=== PATIENT | female | born 1955 | race Caucasian/White ===

== ENCOUNTER 2020-11-14 18:37 | Emergency (ER) | payer OTHER, SELFPAY ==
--- NOTE | ~2020-11-14 | CT_ITS ---
EXAMINATION: CT ABDOMEN AND PELVIS WITHOUT CONTRAST CLINICAL INFORMATION: Left flank pain. Renal stones. COMPARISON: CT abdomen/pelvis dated 10/06/2016. TECHNIQUE: Multidetector volumetric imaging was performed from the superior aspect of the liver through the pubic symphysis. Sagittal and coronal reformatted images were obtained on the technologist's workstation. This CT examination was performed using dose optimization techniques as appropriate, variously including the following: *Automated exposure control. *Adjustment of mA and/or kV according to patient size (this includes techniques or standardized protocols for targeted exams where dose is matched to indication/reason for exam; i.e. extremities or head). *Use of iterative reconstruction technique. DLP: 498 mGy-cm FINDINGS: LUNG BASES: The visualized lung bases are unremarkable. LIVER, GALLBLADDER, AND BILIARY TREE: The liver is normal in size, shape, and attenuation. Small, probable cyst anteriorly within the right hepatic lobe measuring 0.9 cm. No additional focal hepatic lesion or biliary ductal dilatation is present. The gallbladder is unremarkable with no evidence of radiopaque gallstones, gallbladder wall thickening, or obvious pericholecystic inflammatory changes. PANCREAS: Unremarkable. SPLEEN: Unremarkable. ADRENAL GLANDS: Unremarkable. KIDNEYS AND URETERS: The kidneys are normal in size, shape, and attenuation. Right midpole 0.2 cm renal stone, too small to characterize by Hounsfield units. This is located approximately 9.5 cm from the posterior axillary line. This is not clearly seen on the prior CT. No additional right-sided renal or ureteral stone. No right-sided hydronephrosis or hydroureter. Left ureterovesicular junction stone measuring 0.3 cm. Mild proximal hydroureteronephrosis with mild periureteral and perinephric stranding. Additional left midpole renal stone measuring 0.2 cm and located approximately 8.2 cm from the posterior axillary line. BLADDER: Nondistended and unremarkable. GASTROINTESTINAL TRACT: Small, sliding hiatal hernia. Sigmoid diverticulosis without evidence of acute diverticulitis. No bowel wall thickening or associated inflammatory change. No small or large bowel obstruction. Unremarkable appendix. PERITONEAL CAVITY: No intra-abdominal free air or free fluid. No intra-abdominal mass or organized fluid collection/abscess formation. ABDOMINAL WALL: No significant hernia is appreciated. LYMPH NODES: Normal. VASCULAR: Unremarkable. PELVIC VISCERA: The uterus and adnexa are unremarkable. OSSEOUS STRUCTURES: No concerning lytic or blastic osseous lesion. CT/CT abdomen pelvis wo con IMPRESSION: 1. Left ureterovesicular junction stone measuring 0.3 cm with mild left-sided hydroureteronephrosis. Left periureteral and perinephric stranding. 2. Additional 0.2 cm bilateral renal stones. No right-sided hydronephrosis or hydroureter. Unremarkable urinary bladder. 3. Small, sliding hiatal hernia. Diverticulosis without evidence of acute diverticulitis. No small or large bowel obstruction. Unremarkable appendix.
[2020-11-14 18:40] VITALS: BP 168/85; PULSE 81; RESP 16; TEMP 36.6; O2SAT 95; BMI 25.7
--- NOTE | 2020-11-14 18:58 | ED_ITS ---
HPI - General Adult General Chief complaint: Abdominal Pain <CHECO Recinos Last Filed: 11/14/20 20:56> Stated complaint: Flank pain <CHECO Recinos Last Filed: 11/14/20 20:56> Time Seen by Provider: 11/14/20 18:58 <CHECO Recinos Last Filed: 11/14/20 20:56> Source: patient <CHECO Recinos Last Filed: 11/14/20 20:56> Mode of arrival: ambulatory <CHECO Recinos Last Filed: 11/14/20 20:56> Limitations: no limitations <CHECO Recinos Last Filed: 11/14/20 20:56> History of Present Illness HPI narrative: 65-year-old female with a history of kidney stones presents with left flank pain that started at 11:00 a.m. this morning. Patient has had nausea and chills from the pain. The pain is a 9/10 and is constant. She took 600 mg of ibuprofen 1 hour ago which helped with the pain. No dysuria, although she does have urinary frequency. No hematuria. No fevers. No abdominal radiation. She has been drinking a lot of water, and following the protocol her urologist as planned for where she takes ibuprofen, Tylenol, and Soma. This is not resolving her symptoms. Her last stone was 2 years ago. Reports she has had kidney stones at least [address] Merrill, urologist, [facility]. In the spring she image her kidneys and said she had nephrolithiasis. <CHECO Moran Last Filed: 11/14/20 20:56> MD complaint: left flank pain <CHECO Recinos Last Filed: 11/14/20 20:56> Onset (ago): hour(s) (8) <CHECO Recinos Last Filed: 11/14/20 20:56> Radiation: non-radiation <CHECO Recinos Last Filed: 11/14/20 20:56> Severity: severe <CHECO Recinos Last Filed: 11/14/20 20:56> Severity scale (1-10): 9 <CHECO Recinos Last Filed: 11/14/20 20:56> Quality: stabbing <CHECO Recinos Last Filed: 11/14/20 20:56> Pain Consistency: constant <CHECO Recinos Last Filed: 11/14/20 20:56> Relieving factors: medication <CHECO Recinos Last Filed: 11/14/20 20:56> Exacerbating factors: movement <CHECO Recinos Last Filed: 11/14/20 20:56> Associated symptoms: denies other symptoms <CHECO Recinos Last Filed: 11/14/20 20:56> Treatments prior to arrival: NSAID <CHECO Recinos Last Filed: 11/14/20 20:56> Related Data Home medications: Previous Rx's Medication Instructions Recorded ketorolac 10 mg tablet 10 mg PO TID PRN 5 Days #10 tab 11/14/20 ondansetron HCl 4 mg tablet 4 mg PO Q6H PRN #10 tab 11/14/20 (Zofran) prednisone 20 mg tablet 20 mg PO DAILY #4 tab 11/14/20 <CHECO Recinos Last Filed: 11/14/20 20:56> Allergies/adverse reactions: Allergies Allergy/AdvReac Type Severity Reaction Status Date / Time No Known Allergies Allergy Verified 11/14/20 18:46 [No Known Allergies*] <CHECO Recinos Last Filed: 11/14/20 20:56> Review of Systems Constitutional: Constitutional: Denies body ache(s), Reports chills, Denies fatigue, Denies fever(s), Denies headache(s), Denies malaise and Denies weakness <CHECO Recinos Last Filed: 11/14/20 20:56> Eyes: Eyes: Denies change in vision and Denies diplopia <CHECO Recinos Last Filed: 11/14/20 20:56> ENT: Denies vertigo, Denies dizziness, Denies otalgia, Denies headache(s), Denies post nasal drip, Denies sinus pain and Denies sore throat <CHECO Recinos Last Filed: 11/14/20 20:56> Cardiovascular: Cardiovascular: Denies chest pain, Denies syncope, Denies palpitations and Denies dyspnea <CHECO Recinos Last Filed: 11/14/20 20:56> Respiratory: Respiratory: Denies chest congestion, Denies cough and Denies dyspnea <CHECO Recinos Last Filed: 11/14/20 20:56> Gastrointestinal: Gastrointestinal: Denies abdominal pain, Denies hematochezia, Denies constipation, Denies diarrhea, Reports nausea and Denies vomiting <CHECO Recinos Last Filed: 11/14/20 20:56> Genitourinary: Genitourinary: Denies dysuria, Denies pelvic pain, Reports flank pain, Denies urinary incontinence, Denies urinary hesitancy, Reports urinary urgency and Denies vaginal discharge <CHECO Recinos Last Filed: 11/14/20 20:56> Musculoskeletal: Musculoskeletal: Reports back pain <CHECO Recinos Last Filed: 11/14/20 20:56> Integumentary/Breasts: Skin/Breast: Denies erythema and Denies rash <CHECO Recinos Last Filed: 11/14/20 20:56> Neurologic: Denies confusion, Denies vertigo, Denies dizziness, Denies syncope, Denies headache(s) and Denies weakness <CHECO Recinos Last Filed: 11/14/20 20:56> Psychiatric: Psychiatric: Denies anxiety, Denies confusion and Denies depression <CHECO Recinos Last Filed: 11/14/20 20:56> Endocrine: Endocrine: Denies fatigue and Denies palpitations <CHECO Recinos Last Filed: 11/14/20 20:56> [facility] Past Medical History Medical History: Medical History (Updated 11/14/20 @ 21:56 by Rianna Taylor MD) Renal calculi <CHECO Recinos Last Filed: 11/14/20 20:56> Social History Social History: Social History Advance Directives: No Advance Directives Information Provided: No <CHECO Recinos Last Filed: 11/14/20 20:56> Physical Exam Vital Signs: Vital Signs: Last Vital Signs Temp 97.9 F 11/14/20 18:40 Pulse 81 11/14/20 18:40 Resp 16 11/14/20 20:43 BP 168/85 H 11/14/20 18:40 Pulse Ox 95 11/14/20 18:40 Body Mass Index 25.7 <CHECO Recinos - Last Filed: 11/14/20 20:56> Vital Signs: Last Vital Signs Temp 97.9 F 11/14/20 18:40 Pulse 81 11/14/20 18:40 Resp 16 11/14/20 20:43 BP 168/85 H 11/14/20 18:40 Pulse Ox 95 11/14/20 18:40 Body Mass Index 25.7 <Rianna Taylor MD - Last Filed: 11/14/20 21:59> Const: General: No confusion <CHECO Recinos - Last Filed: 11/14/20 20:56> Nutritional Appearance: well nourished <CHECO Recinos - Last Filed: 11/14/20 20:56> Orientation/consciousness: No confusion <CHECO Recinos - Last Filed: 11/14/20 20:56> Limitations: no limitations <CHECO Recinos - Last Filed: 11/14/20 20:56> Eyes: Conjunctivae: conjunctivae normal <CHECO Recinos - Last Filed: 11/14/20 20:56> Pupils: Equal, round and reactive pupils present <CHECO Recinos - Last Filed: 11/14/20 20:56> EOM: EOMs intact bilaterally <CHECO Recinos - Last Filed: 11/14/20 20:56> Neck: Neck: Yes full ROM, Yes no lymphadenopathy and Yes supple <CHECO Recinos - Last Filed: 11/14/20 20:56> Resp: Effort & Inspection: normal respiratory effort and able to speak in complete sentences <CHECO Recinos Last Filed: 11/14/20 20:56> Auscultation: clear to auscultation bilaterally, no crackles, no rales, no rhonchi and no wheezes <CHECO Recinos Last Filed: 11/14/20 20:56> Cardio: Rate: regular rate <CHECO Recinos Last Filed: 11/14/20 20:56> Rhythm: regular rhythm <CHECO Recinos - Last Filed: 11/14/20 20:56> Heart sounds: S1 normal heart sound present and S2 normal heart sound present <Neema Mcdonald [facility] Last Filed: 11/14/20 20:56> GI: Inspection: Yes normal to inspection <Neema Mcdonald [facility] Last Filed: 11/14/20 20:56> Palpation (GI): Soft to palpation, nontender, no guarding and not rigid <Neema Mcdonald [facility] Last Filed: 11/14/20 20:56> Percussion: Yes normal to percussion <Neema Mcdonald [facility] Last Filed: 11/14/20 20:56> Auscultation: normal bowel sounds <Neema Mcdonald [facility] Last Filed: 11/14/20 20:56> : General: Yes no CVA tenderness <Neema Mcdonald [facility] Last Filed: 11/14/20 20:56> Back/Spine/Pelvis: Back: no CVA tenderness <Neema Mcdonald [facility] Last Filed: 11/14/20 20:56> Skin: General skin exam: no rashes or lesions noted <Neema Mcdonald [facility] Last Filed: 11/14/20 20:56> Neuro: General: No confusion <Neema Mcdonald [facility] Last Filed: 11/14/20 20:56> Cranial nerves: Yes Equal, round and reactive pupils present <Neema Mcdonald [facility] Last Filed: 11/14/20 20:56> Extrem: General: Yes normal to inspection and Yes full ROM <Neema Mcdonald [facility] Last Filed: 11/14/20 20:56> Psych: Appearance: grossly normal <Neema Mcdonald [facility] Last Filed: 11/14/20 20:56> Affect: normal affect <Neema Mcdonald [facility] Last Filed: 11/14/20 20:56> Attitude: cooperative <Neema Mcdonald [facility] Last Filed: 11/14/20 20:56> Thought process: Normal thought process present <Neema Mcdonald [facility] Last Filed: 11/14/20 20:56> Course Course Course Narrative: 65-year-old female with a past medical history of kidney stones presents for 8 hours of constant left flank pain that feels like ?a kidney stone is stuck?. On exam, patient has stable vitals and is well appearing, patient has no CVA tenderness. Will get urine, labs, CT abdomen pelvis. Gave ketorolac. Gave fluids. Labs are unremarkable, patient has hematuria Over the course of checking with the patient, patient is stating that she feels like the pain is moving more into her pelvis. Signed patient out to Dr. Taylor, awaiting CT results. <CHECO Recinos - Last Filed: 11/14/20 20:56> 65-year-old female with a past medical history of kidney stones presents for 8 hours of constant left flank pain that feels like ?a kidney stone is stuck?. On exam, patient has stable vitals and is well appearing, patient has no CVA tenderness. Will get urine, labs, CT abdomen pelvis. Gave ketorolac. Gave fluids. Labs are unremarkable, patient has hematuria Over the course of checking with the patient, patient is stating that she feels like the pain is moving more into her pelvis. Signed patient out to Dr. Taylor, awaiting CT results. I discussed the CT scan with the patient, patient does have left ureterovesicular junction stone measuring 0.3 cm patient states she has been off Flomax at home. Does not require a prescription. Patient states that she has a urologist that she usually goes to. <Rianna Taylor MD - Last Filed: 11/14/20 21:59> Medical Decision Making Lab Data Result diagrams: : 11/14/20 19:30 11/14/20 20:02 <CHECO Recinos - Last Filed: 11/14/20 20:56> Labs: Lab Results 11/14/20 11/14/20 11/14/20 Range/Units 19:30 19:30 20:02 WBC 9.0 (4.8-10.8) X10*3/uL RBC 4.69 (4.20-5.50) X10*6/uL Hgb 14.1 (12.0-16.0) g/dl Hct 42.9 (37-47) % MCV 91.5 (80-98) fL MCH 30.1 (27.0-33.0) pg MCHC 32.9 (31.0-35.0) g/dl RDW 12.0 (11.0-16.0) % Plt Count 285 (160-400) X10*3/uL MPV 9.2 L (9.4-12.3) fL Immature Gran % (Auto) 0.2 (0.0-0.4) % Neut % (Auto) 65.4 (45-73) % Lymph % (Auto) 24.6 (20-40) % Clark % (Auto) 7.7 (2-11) % Eos % (Auto) 1.8 (0-4) % Baso % (Auto) 0.3 (0-2) % Lymph # (Auto) 2.2 (1.2-4.9) X10*3/uL Clark # (Auto) 0.7 (0.1-1.2) X10*3/uL Eos # (Auto) 0.2 (0.0-0.4) X10*3/uL Baso # (Auto) 0.0 (0.0-0.2) X10*3/uL Abs Immat Gran (auto) 0.02 (0.00-0.03) X10*3/uL Absolute Neuts (auto) 5.9 (2.0-8.3) X10*3/uL Absolute Nucleated RBC 0.000 (0.0-0.012) X10*3/uL Nucleated RBC % (auto) 0.0 (0.0-0.2) /100WBC Sodium 136 (135-145) mmol/L Potassium 4.3 (3.3-5.1) mmol/L Chloride 103 (96-108) mmol/L Carbon Dioxide 23 (22-29) mmol/L Anion Gap 14 (12-20) BUN 18 H (9-16) mg/dL Creatinine 1.04 (0.5-1.4) mg/dL Estim Creat Clear Calc 49.8 Estimated GFR 53 Random Glucose 99 (60-115) mg/dL Calcium 8.9 (8.4-10.2) mg/dL Total Bilirubin 0.7 (0.0-1.0) mg/dL AST 19 (5-31) U/L ALT 14 (0-31) U/L Alkaline Phosphatase 86 (39-117) U/L Total Protein 6.4 L (6.5-8.0) g/dL Albumin 3.8 (3.5-5.0) g/dL Urine Color STRAW Urine Appearance CLEAR Urine pH 6.0 (5.0-8.0) Ur Specific [place] <= 1.005 (1.005-1.025) Urine Protein NEG (NEG-TRACE) MG/DL Urine Glucose (UA) NEG (NEG) MG/DL Urine Ketones NEG (NEG) MG/DL Urine Blood 3+ H (NEG) Urine Nitrite NEG (NEG) Ur Leukocyte Esterase NEG (NEG) Urine RBC 10-14 H (0) /HPF Urine WBC 0-2 (0-4) /HPF Ur Squamous Epith Cells 1+ /LPF Urine Bacteria NONE /LPF <CHECO Recinos - Last Filed: 11/14/20 20:56> Lab Results 11/14/20 11/14/20 11/14/20 Range/Units 19:30 19:30 20:02 WBC 9.0 (4.8-10.8) X10*3/uL RBC 4.69 (4.20-5.50) X10*6/uL Hgb 14.1 (12.0-16.0) g/dl Hct 42.9 (37-47) % MCV 91.5 (80-98) fL MCH 30.1 (27.0-33.0) pg MCHC 32.9 (31.0-35.0) g/dl RDW 12.0 (11.0-16.0) % Plt Count 285 (160-400) X10*3/uL MPV 9.2 L (9.4-12.3) fL Immature Gran % (Auto) 0.2 (0.0-0.4) % Neut % (Auto) 65.4 (45-73) % Lymph % (Auto) 24.6 (20-40) % Clark % (Auto) 7.7 (2-11) % Eos % (Auto) 1.8 (0-4) % Baso % (Auto) 0.3 (0-2) % Lymph # (Auto) 2.2 (1.2-4.9) X10*3/uL Clark # (Auto) 0.7 (0.1-1.2) X10*3/uL Eos # (Auto) 0.2 (0.0-0.4) X10*3/uL Baso # (Auto) 0.0 (0.0-0.2) X10*3/uL Abs Immat Gran (auto) 0.02 (0.00-0.03) X10*3/uL Absolute Neuts (auto) 5.9 (2.0-8.3) X10*3/uL Absolute Nucleated RBC 0.000 (0.0-0.012) X10*3/uL Nucleated RBC % (auto) 0.0 (0.0-0.2) /100WBC Sodium 136 (135-145) mmol/L Potassium 4.3 (3.3-5.1) mmol/L Chloride 103 (96-108) mmol/L Carbon Dioxide 23 (22-29) mmol/L Anion Gap 14 (12-20) BUN 18 H (9-16) mg/dL Creatinine 1.04 (0.5-1.4) mg/dL Estim Creat Clear Calc 49.8 Estimated GFR 53 Random Glucose 99 (60-115) mg/dL Calcium 8.9 (8.4-10.2) mg/dL Total Bilirubin 0.7 (0.0-1.0) mg/dL AST 19 (5-31) U/L ALT 14 (0-31) U/L Alkaline Phosphatase 86 (39-117) U/L Total Protein 6.4 L (6.5-8.0) g/dL Albumin 3.8 (3.5-5.0) g/dL Urine Color STRAW Urine Appearance CLEAR Urine pH 6.0 (5.0-8.0) Ur Specific [place] <= 1.005 (1.005-1.025) Urine Protein NEG (NEG-TRACE) MG/DL Urine Glucose (UA) NEG (NEG) MG/DL Urine Ketones NEG (NEG) MG/DL Urine Blood 3+ H (NEG) Urine Nitrite NEG (NEG) Ur Leukocyte Esterase NEG (NEG) Urine RBC 10-14 H (0) /HPF Urine WBC 0-2 (0-4) /HPF Ur Squamous Epith Cells 1+ /LPF Urine Bacteria NONE /LPF <Rianna Taylor MD - Last Filed: 11/14/20 21:59> Imaging Data CT scan - abdomen: Radiologist's impression: FINDINGS: LUNG BASES: The visualized lung bases are unremarkable.? LIVER, GALLBLADDER, AND BILIARY TREE: The liver is normal in size, shape, and attenuation. Small, probable cyst anteriorly within the right hepatic lobe measuring 0.9 cm. No additional focal hepatic lesion or biliary ductal dilatation is present. The gallbladder is unremarkable with no evidence of radiopaque gallstones, gallbladder wall thickening, or obvious pericholecystic inflammatory changes.? PANCREAS: Unremarkable.? SPLEEN: Unremarkable.? ADRENAL GLANDS: Unremarkable.? KIDNEYS AND URETERS: The kidneys are normal in size, shape, and attenuation. Right midpole 0.2 cm renal stone, too small to characterize by Hounsfield units. This is located approximately 9.5 cm from the posterior axillary line. This is not clearly seen on the prior CT. No additional right-sided renal or ureteral stone. No right-sided hydronephrosis or hydroureter. Left ureterovesicular junction stone measuring 0.3 cm. Mild proximal hydroureteronephrosis with mild periureteral and perinephric stranding. Additional left midpole renal stone measuring 0.2 cm and located approximately 8.2 cm from the posterior axillary line.? BLADDER: Nondistended and unremarkable.? GASTROINTESTINAL TRACT: Small, sliding hiatal hernia. Sigmoid diverticulosis without evidence of acute diverticulitis. No bowel wall thickening or associated inflammatory change. No small or large bowel obstruction. Unremarkable appendix. PERITONEAL CAVITY: No intra-abdominal free air or free fluid. No intra-abdominal mass or organized fluid collection/abscess formation.? ABDOMINAL WALL: No significant hernia is appreciated.? LYMPH NODES: Normal. VASCULAR: Unremarkable. PELVIC VISCERA: The uterus and adnexa are unremarkable.? OSSEOUS STRUCTURES: No concerning lytic or blastic osseous lesion.? CT/CT abdomen pelvis wo con IMPRESSION: 1. Left ureterovesicular junction stone measuring 0.3 cm with mild left-sided hydroureteronephrosis. Left periureteral and perinephric stranding. ? 2. Additional 0.2 cm bilateral renal stones. No right-sided hydronephrosis or hydroureter. Unremarkable urinary bladder. ? 3. Small, sliding hiatal hernia. Diverticulosis without evidence of acute diverticulitis. No small or large bowel obstruction. Unremarkable appendix.? <Rianna Taylor MD - Last Filed: 11/14/20 21:59> Discharge Plan Discharge Clinical Impression: Ureterolithiasis <CHECO Recinos - Last Filed: 11/14/20 20:56> Patient Disposition: Home, Self-Care <CHECO Recinos - Last Filed: 11/14/20 20:56> Instructions: Ureteral Stones (ED) <CHECO Recinos - Last Filed: 11/14/20 20:56> Additional Instructions: Please follow-up with your primary care physician tomorrow. If you have any worsening or new symptoms, please return to the emergency room or call 911 <CHECO Recinos - Last Filed: 11/14/20 20:56> Prescriptions: New ketorolac 10 mg tablet 10 mg PO TID PRN (Reason: pain) 5 Days Qty: 10 RF: 0 ondansetron HCl [Zofran] 4 mg tablet 4 mg PO Q6H PRN (Reason: nausea and vomiting) Qty: 10 RF: 0 prednisone 20 mg tablet 20 mg PO DAILY Qty: 4 RF: 0 <CHECO Recinos Last Filed: 11/14/20 20:56>
[2020-11-14] MEDS: Ketorolac Tromethamine 15 MG/ML VIAL IVPUSH (19:34)
[2020-11-14 19:35] LABS: MANUAL DIFF FLAG NO
[2020-11-14 19:39] LABS: Glucose Urine UA NEG (NEG); Leukocyte Esterase Urine NEG (NEG); Nitrite Urine NEG (NEG); Specific Gravity - Urine <= 1.005 (1.005-1.025); Urine Blood 3+ (NEG); Urine Ketones NEG (NEG); Urine Protein NEG (NEG-TRACE)
[2020-11-14 19:40] LABS: Appearance Urine CLEAR; Color Urine STRAW
[2020-11-14 19:43] LABS: Basophils Percent Auto 0.3 % (0-2); Eosinophils Absolute Auto 0.2 X10*3/uL (0.0-0.4); Eosinophils Percent Auto 1.8 % (0-4); Hematocrit 42.9 % (37-47); Hemoglobin 14.1 g/dl (12.0-16.0); Imm Gran Abs Auto 0.02 X10*3/uL (0.00-0.03); Imm Gran Pct Auto 0.2 % (0.0-0.4); Lymphocytes Absolute Auto 2.2 X10*3/uL (1.2-4.9); Lymphocytes Percent Auto 24.6 % (20-40); Mean Corpuscular HGB Conc 32.9 g/dl (31.0-35.0); Mean Corpuscular Hemoglobin 30.1 pg (27.0-33.0); Mean Corpuscular Volume 91.5 fL (80-98); Mean Platelet Volume 9.2 fL (9.4-12.3); Monocytes Absolute Auto 0.7 X10*3/uL (0.1-1.2); Monocytes Percent Auto 7.7 % (2-11); Neutrophils Absolute Auto 5.9 X10*3/uL (2.0-8.3); Neutrophils Percent Auto 65.4 % (45-73); Platelet Count 285 X10*3/uL (160-400); Red Blood Count 4.69 X10*6/uL (4.20-5.50)
[2020-11-14 19:45] LABS: Squamous Epithelial Cell Urine 1+ /LPF; WBC Urine 0-2 /HPF (0-4)
[2020-11-14] MEDS: 0.9 % Sodium Chloride 1,000 ML 999 ML IV (19:58)
[2020-11-14 20:40] VITALS: RESP 16
[2020-11-14 20:40] LABS: Alanine Aminotransferase 14 U/L (0-31); Albumin Level 3.8 g/dL (3.5-5.0); Alkaline Phosphatase 86 U/L (39-117); Anion Gap 14 (12-20); Aspartate Amino Transferase 19 U/L (5-31); Bilirubin Total 0.7 mg/dL (0.0-1.0); Blood Urea Nitrogen 18 mg/dL (9-16); Calcium 8.9 mg/dL (8.4-10.2); Carbon Dioxide 23 mmol/L (22-29); Chloride 103 mmol/L (96-108); Creatinine Clr Calc Pharmacy 49.8; Estimated Glomerular Filt Rate 53; Glucose Random 99 mg/dL (60-115); Potassium 4.3 mmol/L (3.3-5.1); Sodium 136 mmol/L (135-145); Total Protein 6.4 g/dL (6.5-8.0)
[2020-11-14] MEDS: ondansetron HCL 4 MG/2 ML VIAL IVPUSH (20:41)
[2020-11-14 20:43] VITALS: RESP 16
[2020-11-14] MEDS: Morphine Sulfate 4 MG/ML CARTRIDGE IVPUSH (20:43)
[2020-11-14 22:12] VITALS: RESP 16
== END 2020-11-14 22:25 | disposition home or self-care (01) ==
PROVIDERS: Physician Assistant; Emergency Provider Emergency Medicine; PCP Internal Medicine
DX: N13.2 Hydronephrosis with renal and ureteral calculous obstruction (principal); Z87.442 Personal history of urinary calculi
CPT/HCPCS: 36415; 74176; 80053; 81001; 85025; 96361; 96374; 96375; 99284; J1885; J2270; J2405

== ENCOUNTER 2020-11-18 09:23 | Outpatient (REF) | payer OTHER, SELFPAY ==
[2020-11-18 10:07] LABS: Glucose Urine UA NEG (NEG); Leukocyte Esterase Urine NEG (NEG); MANUAL DIFF FLAG NO; Nitrite Urine POS (NEG); Specific Gravity - Urine 1.015 (1.005-1.025); Urine Blood TRACE (NEG); Urine Ketones NEG (NEG); Urine Protein NEG (NEG-TRACE)
[2020-11-18 10:09] LABS: Appearance Urine CLEAR; Color Urine YELLOW
[2020-11-18 10:16] LABS: Basophils Percent Auto 0.3 % (0-2); Hematocrit 43.8 % (37-47); Hemoglobin 14.2 g/dl (12.0-16.0); Imm Gran Abs Auto 0.02 X10*3/uL (0.00-0.03); Imm Gran Pct Auto 0.3 % (0.0-0.4); Lymphocytes Absolute Auto 1.5 X10*3/uL (1.2-4.9); Lymphocytes Percent Auto 23.4 % (20-40); Mean Corpuscular HGB Conc 32.4 g/dl (31.0-35.0); Mean Corpuscular Hemoglobin 29.7 pg (27.0-33.0); Mean Corpuscular Volume 91.6 fL (80-98); Mean Platelet Volume 9.5 fL (9.4-12.3); Monocytes Absolute Auto 0.3 X10*3/uL (0.1-1.2); Monocytes Percent Auto 4.8 % (2-11); Neutrophils Absolute Auto 4.5 X10*3/uL (2.0-8.3); Neutrophils Percent Auto 71.2 % (45-73); Platelet Count 329 X10*3/uL (160-400); Red Blood Count 4.78 X10*6/uL (4.20-5.50); Red Cell Distribution Width 12.1 % (11.0-16.0); White Blood Count 6.3 X10*3/uL (4.8-10.8)
[2020-11-18 10:19] LABS: Bacteria Urine TRACE /LPF; RBC Urine 0-2 /HPF (0); Squamous Epithelial Cell Urine 1+ /LPF; WBC Urine 0-2 /HPF (0-4)
[2020-11-18 11:30] LABS: Vitamin D 25-OH Total 33.7 ng/mL (>30)
[2020-11-18 11:39] LABS: Alanine Aminotransferase 22 U/L (0-31); Albumin Level 4.2 g/dL (3.5-5.0); Alkaline Phosphatase 85 U/L (39-117); Anion Gap 15 (12-20); Aspartate Amino Transferase 19 U/L (5-31); Bilirubin Total 0.4 mg/dL (0.0-1.0); Blood Urea Nitrogen 14 mg/dL (9-16); Calcium 9.4 mg/dL (8.4-10.2); Carbon Dioxide 25 mmol/L (22-29); Chloride 104 mmol/L (96-108); Cholesterol 250 mg/dL; Estimated Glomerular Filt Rate > 60; Glucose Fasting 107 mg/dL (60-99); HDL Cholesterol 62 mg/dL; LDL Cholesterol Calculated 163 mg/dl; Potassium 4.4 mmol/L (3.3-5.1); Sodium 140 mmol/L (135-145); Total Protein 7.1 g/dL (6.5-8.0); Triglycerides 125 mg/dL
== END 2020-11-18 09:24 | disposition home or self-care (01) ==
LOC: HO.10HDL 09:23
PROVIDERS: PCP Internal Medicine; Visit Provider Internal Medicine
DX: Z00.00 Encounter for general adult medical examination without abnormal findings (principal); N20.0 Calculus of kidney
CPT/HCPCS: 36415; 80053; 80061; 81001; 82306; 84443; 85025

== ENCOUNTER 2021-04-14 09:30 | Outpatient (REF) | payer OTHER, SELFPAY ==
[2021-04-14 10:15] LABS: MANUAL DIFF FLAG NO
[2021-04-14 10:20] LABS: Basophils Percent Auto 0.5 % (0-2); Eosinophils Absolute Auto 0.1 X10*3/uL (0.0-0.4); Eosinophils Percent Auto 2.2 % (0-4); Hematocrit 45.7 % (37.0-47.0); Hemoglobin 14.9 g/dl (12.0-16.0); Imm Gran Abs Auto 0.02 X10*3/uL (0.00-0.03); Imm Gran Pct Auto 0.4 % (0.0-0.4); Lymphocytes Percent Auto 36.3 % (20-40); Mean Corpuscular HGB Conc 32.6 g/dl (31.0-35.0); Mean Corpuscular Hemoglobin 30.2 pg (27.0-33.0); Mean Corpuscular Volume 92.5 fL (80.0-98.0); Mean Platelet Volume 9.2 fL (9.4-12.3); Monocytes Absolute Auto 0.4 X10*3/uL (0.1-1.2); Monocytes Percent Auto 7.1 % (2-11); Neutrophils Absolute Auto 2.9 x10*3/uL (2.0-8.3); Neutrophils Percent Auto 53.5 % (45-73); Platelet Count 299 X10*3/uL (160-400); Red Blood Count 4.94 X10*6/uL (4.20-5.50); Red Cell Distribution Width 12.2 % (11.0-16.0); White Blood Count 5.5 X10*3/uL (4.8-10.8)
[2021-04-14 10:38] LABS: Alanine Aminotransferase 16 U/L (0-31); Albumin Level 3.9 g/dL (3.5-5.0); Alkaline Phosphatase 89 U/L (39-117); Anion Gap 11 (12-20); Aspartate Amino Transferase 18 U/L (5-31); Bilirubin Total 0.6 mg/dL (0.0-1.0); Blood Urea Nitrogen 14 mg/dL (9-16); Calcium 9.3 mg/dL (8.4-10.2); Carbon Dioxide 27 mmol/L (22-29); Chloride 104 mmol/L (96-108); Estimated Glomerular Filt Rate > 60; Glucose Fasting 93 mg/dL (60-99); Potassium 4.2 mmol/L (3.3-5.1); Sodium 138 mmol/L (135-145); Total Protein 7.1 g/dL (6.5-8.0)
[2021-04-14 10:57] LABS: Thyroid Stimulating Hormone 1.54 uIU/mL (0.32-4.0)
[2021-04-14 11:33] LABS: Vitamin B12 466 pg/mL (200-900)
[2021-04-14 13:53] LABS: Appearance Urine CLEAR; Color Urine STRAW; Glucose Urine UA NEG (NEG); Leukocyte Esterase Urine NEG (NEG); Nitrite Urine NEG (NEG); Urine Blood NEG (NEG); Urine Ketones NEG (NEG); Urine Protein NEG (NEG-TRACE)
== END 2021-04-14 09:31 | disposition home or self-care (01) ==
LOC: HO.10HDL 09:30
PROVIDERS: Visit Provider Internal Medicine
DX: R53.83 Other fatigue (principal); R30.0 Dysuria
CPT/HCPCS: 36415; 80053; 81003; 82607; 84443; 85025; 87086

== ENCOUNTER 2021-04-24 07:55 | Emergency (ER) | payer OTHER, SELFPAY ==
--- NOTE | ~2021-04-24 | XR_ITS ---
EXAMINATION: XR CHEST CLINICAL INFORMATION: Chest pain COMPARISON: 04/26/2018 TECHNIQUE: Frontal view of the chest was obtained. FINDINGS: Lungs are adequately expanded and clear. No pulmonary edema, consolidation or pleural effusion. No pneumothorax. Cardiac silhouette has normal size and contour. No acute skeletal findings. XR/XR chest 1V IMPRESSION: No acute pulmonary disease.
--- NOTE | 2021-04-24 08:30 | ECG_ITS ---
Test Reason : chest pressure Blood Pressure : / mmHG Vent. Rate : 073 BPM Atrial Rate : 073 BPM P-R Int : 166 ms QRS Dur : 080 ms QT Int : 396 ms P-R-T Axes : 054 040 025 degrees QTc Int : 436 ms Normal sinus rhythm Normal ECG No previous ECGs available Referred By: Krysten Cortes Electronically Signed By:Antonio Corona
--- NOTE | 2021-04-24 08:39 | ED.GENADULT ---
HPI - General Adult General Chief complaint: General Medical Stated complaint: Chest pressure/headache Time Seen by Provider: 04/24/21 08:21 Source: patient Mode of arrival: ambulatory History of Present Illness HPI narrative: 65-year-old female with no significant past medical history presenting to the ED complaining of intermittent chest pressure x 2-3 days, dull headache, generalized fatigue/weakness x2 weeks. Reports was seen by PCP had outpatient labs are WNL however symptoms persistent. Denies fever, chills, cough, SOB, pedal edema, abdominal pain, nausea/vomiting Onset (ago): week(s) Related Data Previous Rx's Medication Instructions Recorded ketorolac 10 mg tablet 10 mg PO TID PRN 5 Days #10 tab 11/14/20 ondansetron HCl 4 mg tablet 4 mg PO Q6H PRN #10 tab 11/14/20 (Zofran) phenazopyridine 100 mg tablet 100 mg PO TID PRN #6 tab 11/14/20 prednisone 20 mg tablet 20 mg PO DAILY #4 tab 11/14/20 Allergies Allergy/AdvReac Type Severity Reaction Status Date / Time No Known Allergies Allergy Verified 04/24/21 08:43 [No Known Allergies*] Review of Systems Review of Systems: Constitutional: No Fever, No Chills, No Night Sweats, + Fatigue, + Malaise ENT/Mouth: No Ear Pain, No Nasal Congestion, No sore throat, No Rhinorrhea, No Swallowing Difficulty Eyes: No Eye Pain, No Swelling, No Redness Cardiovascular: + Chest Pain, No SOB, No Edema, No Palpitations Respiratory: No Cough, No Dyspnea Gastrointestinal: No Nausea, No Vomiting, No Diarrhea, No Constipation, No Abdominal pain Genitourinary: No Dysuria, No Urinary Frequency, No Hematuria,No Flank Pain, No Urinary Flow Changes, No Hesitancy Musculoskeletal: No joint pain, No Myalgias, No Joint Swelling Skin: No Skin Lesions, No rash Neuro: No Weakness, No Numbness, No Paresthesias, No Loss of Consciousness, No Dizziness, + Headache Yes all other systems are reviewed and are negative [facility] Past Medical History Attestation statement: The following information was validated with the patient. Medical History Renal calculi Social History Social History Advance Directives: Yes Advance Directives Information Provided: No Advance Directives on File: No Physical Exam Vital Signs: Vital Signs: Last Vital Signs Temp 98.3 F 04/24/21 12:15 Pulse 67 04/24/21 12:15 Resp 12 04/24/21 12:15 BP 136/78 04/24/21 12:15 Pulse Ox 98 04/24/21 12:15 BMI result Body Mass Index 25.7 Const: General: cooperative, healthy appearing, no acute distress, well developed, alert and awake Orientation/consciousness: patient oriented x3 Limitations: no limitations HENMT: Head: Yes normal to inspection and Yes atraumatic Ears: hearing grossly normal bilaterally General nose exam: Normal external nose present Face and sinus: Yes normal facial exam Eyes: General: appearance normal, both eyes and all related structures EOM: EOMs intact bilaterally Neck: Neck: Yes normal visual inspection and Yes no meningeal signs Resp: Effort & Inspection: normal respiratory effort and no respiratory distress Auscultation: clear to auscultation bilaterally, no rales, no rhonchi and no wheezes Cardio: Rate: regular rate Heart sounds: S1 normal heart sound present and S2 normal heart sound present GI: Inspection: Yes normal to inspection Palpation (GI): Soft to palpation, nontender, no guarding and not rigid Skin: Rashes: no rashes Wounds: no wounds Neuro: General: patient oriented x3, gait normal, tone normal, moves all extremities, no meningeal signs and no focal motor deficits Cranial nerves: Yes CN's II-XII intact bilaterally Gait exam (Neuro): Normal gait present Extrem: General: Yes normal to inspection, Yes no pedal edema and Yes no calf tenderness Course Course Course Narrative: -no leukocytosis. Initial troponin negative, labs otherwise unremarkable > will obtain 2hr repeat due to EKG findings. Symptoms have been occurring x couple days -UA negative. COVID-19 negative XR chest 1V IMPRESSION: No acute pulmonary disease -1250--repeat troponin equivocal. Results discussed with patient including worrisome signs and symptoms and strict return precautions and need a close follow-up with PCP. Patient verbalized understanding & feels safe for discharge home at this time Medical Decision Making MDM Narrative Medical decision making narrative: 65-year-old female with no significant past medical history presenting to the ED complaining of intermittent chest pressure x 2-3 days, dull headache, generalized fatigue/weakness x2 weeks. On exam vital signs stable, and 80s/nontoxic, lungs CTA, no pedal edema, abdomen soft/nontender. Concern for metabolic/infectious etiologies vs viral syndrome/COVID-19. Symptoms atypical for ACS or PE. Unlikely thyroid dysfunction as outpatient labs on 04/14/2021 TSH WNL Plan: EKG, labs, UA, CXR, re-evaluate Medical Records Medical records reviewed: Yes I reviewed the patient's medical records. Lab Data Lab results reviewed: Yes I reviewed the patient's lab results. Result diagrams: 04/24/21 09:11 04/24/21 09:11 Labs: Lab Results 04/24/21 04/24/21 04/24/21 Range/Units 08:31 09:11 09:11 WBC 6.1 (4.8-10.8) X10*3/uL RBC 4.91 (4.20-5.50) X10*6/uL Hgb 14.9 (12.0-16.0) g/dl Hct 45.6 (37.0-47.0) % MCV 92.9 (80.0-98.0) fL MCH 30.3 (27.0-33.0) pg MCHC 32.7 (31.0-35.0) g/dl RDW 12.3 (11.0-16.0) % Plt Count 304 (160-400) X10*3/uL MPV 9.3 L (9.4-12.3) fL Immature Gran % (Auto) 0.2 (0.0-0.4) % Neut % (Auto) 63.8 (45-73) % Lymph % (Auto) 27.1 (20-40) % Schleicher % (Auto) 6.7 (2-11) % Eos % (Auto) 1.5 (0-4) % Baso % (Auto) 0.7 (0-2) % Lymph # (Auto) 1.7 (1.2-4.9) X10*3/uL Schleicher # (Auto) 0.4 (0.1-1.2) X10*3/uL Eos # (Auto) 0.1 (0.0-0.4) X10*3/uL Baso # (Auto) 0.0 (0.0-0.2) X10*3/uL Abs Immat Gran (auto) 0.01 (0.00-0.03) X10*3/uL Absolute Neuts (auto) 3.9 (2.0-8.3) x10*3/uL Absolute Nucleated RBC 0.000 (0.0-0.012) X10*3/uL Nucleated RBC % (auto) 0.0 (0.0-0.2) /100WBC Sodium 141 (135-145) mmol/L Potassium 4.3 (3.3-5.1) mmol/L Chloride 104 (96-108) mmol/L Carbon Dioxide 27 (22-29) mmol/L Anion Gap 14 (12-20) BUN 15 (9-16) mg/dL Creatinine 0.79 (0.5-1.4) mg/dL Estim Creat Clear Calc 68.2 Estimated GFR > 60 Random Glucose 104 (60-115) mg/dL Calcium 9.6 (8.4-10.2) mg/dL Magnesium 2.3 (1.6-2.6) mg/dL Total Bilirubin 0.3 (0.0-1.0) mg/dL Direct Bilirubin 0.2 (0.0-0.5) mg/dL AST 15 (5-31) U/L ALT 13 (0-31) U/L Alkaline Phosphatase 84 (39-117) U/L Troponin I High Sens (<3.5-17.0) ng/L B-Natriuretic Peptide (<100) pg/mL Total Protein 7.2 (6.5-8.0) g/dL Albumin 4.1 (3.5-5.0) g/dL Urine Color Urine Appearance Urine pH (5.0-8.0) Ur Specific [place] (1.005-1.025) Urine Protein (NEG-TRACE) MG/DL Urine Glucose (UA) (NEG) MG/DL Urine Ketones (NEG) MG/DL Urine Blood (NEG) Urine Nitrite (NEG) Ur Leukocyte Esterase (NEG) COVID-19 (CRISTINA) Negative (Negative) COVID-19 Clin Com See Note 04/24/21 04/24/21 04/24/21 Range/Units 09:11 09:27 11:57 WBC (4.8-10.8) X10*3/uL RBC (4.20-5.50) X10*6/uL Hgb (12.0-16.0) g/dl Hct (37.0-47.0) % MCV (80.0-98.0) fL MCH (27.0-33.0) pg MCHC (31.0-35.0) g/dl RDW (11.0-16.0) % Plt Count (160-400) X10*3/uL MPV (9.4-12.3) fL Immature Gran % (Auto) (0.0-0.4) % Neut % (Auto) (45-73) % Lymph % (Auto) (20-40) % Schleicher % (Auto) (2-11) % Eos % (Auto) (0-4) % Baso % (Auto) (0-2) % Lymph # (Auto) (1.2-4.9) X10*3/uL Schleicher # (Auto) (0.1-1.2) X10*3/uL Eos # (Auto) (0.0-0.4) X10*3/uL Baso # (Auto) (0.0-0.2) X10*3/uL Abs Immat Gran (auto) (0.00-0.03) X10*3/uL Absolute Neuts (auto) (2.0-8.3) x10*3/uL Absolute Nucleated RBC (0.0-0.012) X10*3/uL Nucleated RBC % (auto) (0.0-0.2) /100WBC Sodium (135-145) mmol/L Potassium (3.3-5.1) mmol/L Chloride (96-108) mmol/L Carbon Dioxide (22-29) mmol/L Anion Gap (12-20) BUN (9-16) mg/dL Creatinine (0.5-1.4) mg/dL Estim Creat Clear Calc Estimated GFR Random Glucose (60-115) mg/dL Calcium (8.4-10.2) mg/dL Magnesium (1.6-2.6) mg/dL Total Bilirubin (0.0-1.0) mg/dL Direct Bilirubin (0.0-0.5) mg/dL AST (5-31) U/L ALT (0-31) U/L Alkaline Phosphatase (39-117) U/L Troponin I High Sens < 3.5 < 3.5 (<3.5-17.0) ng/L B-Natriuretic Peptide 22 (<100) pg/mL Total Protein (6.5-8.0) g/dL Albumin (3.5-5.0) g/dL Urine Color STRAW Urine Appearance CLEAR Urine pH 6.0 (5.0-8.0) Ur Specific [place] 1.010 (1.005-1.025) Urine Protein NEG (NEG-TRACE) MG/DL Urine Glucose (UA) NEG (NEG) MG/DL Urine Ketones NEG (NEG) MG/DL Urine Blood NEG (NEG) Urine Nitrite NEG (NEG) Ur Leukocyte Esterase NEG (NEG) COVID-19 (CRISTINA) (Negative) COVID-19 Clin Com ECG Data Attestation: I personally reviewed and interpreted this ECG as follows: Prior ECG tracings: not available for review Interpretation: EKG normal sinus rhythm at a rate of 73. Pr interval 166. QRS 80. QTC 436. ST-elevation in lead 3. No STEMI Discharge Plan Discharge Clinical Impression: Chest pain, Fatigue Patient Disposition: Home, Self-Care Instructions: Noncardiac Chest Pain (ED) Additional Instructions: Your blood work was reassuring today in the emergency department. Her chest x-ray was unremarkable. Urine urine was not infected Please follow-up with her primary care doctor. If symptoms persist or worsen, you constant worsening chest pain, shortness of breath, or developed fever please return to the ED You tested negative for COVID-19 Prescriptions: No Action ketorolac 10 mg tablet 10 mg PO TID PRN (Reason: pain) 5 Days Qty: 10 RF: 0 ondansetron HCl [Zofran] 4 mg tablet 4 mg PO Q6H PRN (Reason: nausea and vomiting) Qty: 10 RF: 0 prednisone 20 mg tablet 20 mg PO DAILY Qty: 4 RF: 0 phenazopyridine 100 mg tablet 100 mg PO TID PRN (Reason: pain) Qty: 6 RF: 0 Referrals: Louie Miller MD [Primary Care Provider] - 2 days
[2021-04-24 08:43] VITALS: BP 151/79; PULSE 72; RESP 18; TEMP 36.6; O2SAT 98; BMI 25.7
[2021-04-24 08:52] LABS: COVID-19 Test Negative (Negative); IDNOW Serial# 9DD0AD1C
[2021-04-24 09:15] LABS: MANUAL DIFF FLAG NO
[2021-04-24 09:16] VITALS: BP 156/75; PULSE 66
[2021-04-24 09:17] VITALS: BP 158/76; PULSE 77
[2021-04-24 09:19] VITALS: BP 146/78; PULSE 75
[2021-04-24 09:19] LABS: Basophils Percent Auto 0.7 % (0-2); Eosinophils Absolute Auto 0.1 X10*3/uL (0.0-0.4); Eosinophils Percent Auto 1.5 % (0-4); Hematocrit 45.6 % (37.0-47.0); Hemoglobin 14.9 g/dl (12.0-16.0); Imm Gran Abs Auto 0.01 X10*3/uL (0.00-0.03); Imm Gran Pct Auto 0.2 % (0.0-0.4); Lymphocytes Absolute Auto 1.7 X10*3/uL (1.2-4.9); Lymphocytes Percent Auto 27.1 % (20-40); Mean Corpuscular HGB Conc 32.7 g/dl (31.0-35.0); Mean Corpuscular Hemoglobin 30.3 pg (27.0-33.0); Mean Corpuscular Volume 92.9 fL (80.0-98.0); Mean Platelet Volume 9.3 fL (9.4-12.3); Monocytes Absolute Auto 0.4 X10*3/uL (0.1-1.2); Monocytes Percent Auto 6.7 % (2-11); Neutrophils Absolute Auto 3.9 x10*3/uL (2.0-8.3); Neutrophils Percent Auto 63.8 % (45-73); Platelet Count 304 X10*3/uL (160-400); Red Blood Count 4.91 X10*6/uL (4.20-5.50); Red Cell Distribution Width 12.3 % (11.0-16.0); White Blood Count 6.1 X10*3/uL (4.8-10.8)
[2021-04-24 09:34] LABS: Alanine Aminotransferase 13 U/L (0-31); Albumin Level 4.1 g/dL (3.5-5.0); Alkaline Phosphatase 84 U/L (39-117); Anion Gap 14 (12-20); Aspartate Amino Transferase 15 U/L (5-31); Bilirubin Direct 0.2 mg/dL (0.0-0.5); Bilirubin Total 0.3 mg/dL (0.0-1.0); Blood Urea Nitrogen 15 mg/dL (9-16); Calcium 9.6 mg/dL (8.4-10.2); Carbon Dioxide 27 mmol/L (22-29); Chloride 104 mmol/L (96-108); Creatinine Clr Calc Pharmacy 68.2; Estimated Glomerular Filt Rate > 60; Glucose Random 104 mg/dL (60-115); Magnesium 2.3 mg/dL (1.6-2.6); Potassium 4.3 mmol/L (3.3-5.1); Sodium 141 mmol/L (135-145); Total Protein 7.2 g/dL (6.5-8.0)
[2021-04-24 09:40] LABS: B Type Natriuretic Peptide 22 pg/mL (<100); Troponin-I High Sensitivity < 3.5 ng/L (<3.5-17.0)
[2021-04-24 09:41] LABS: Appearance Urine CLEAR; Color Urine STRAW; Glucose Urine UA NEG (NEG); Leukocyte Esterase Urine NEG (NEG); Nitrite Urine NEG (NEG); Urine Blood NEG (NEG); Urine Ketones NEG (NEG); Urine Protein NEG (NEG-TRACE)
[2021-04-24 12:15] VITALS: BP 136/78; PULSE 67; RESP 12; TEMP 36.8; O2SAT 98
[2021-04-24 12:28] LABS: Troponin-I High Sensitivity < 3.5 ng/L (<3.5-17.0)
== END 2021-04-24 13:23 | disposition home or self-care (01) ==
PROVIDERS: Physician Assistant; Emergency Provider Internal Medicine; PCP Internal Medicine
DX: R07.9 Chest pain, unspecified (principal); R53.83 Other fatigue; Z20.822 Contact with and (suspected) exposure to COVID-19; R51.9 Headache, unspecified
CPT/HCPCS: 36415; 71045; 80048; 80076; 81003; 83735; 83880; 84484; 85025; 87635; 93005; 99283; 99284

== ENCOUNTER → 2021-05-19 09:13 | Outpatient (REF) | payer OTHER, SELFPAY | LOC: HO.SL 09:13 | PROVIDERS: PCP Internal Medicine; Visit Provider Internal Medicine | DX: G47.33 Obstructive sleep apnea (adult) (pediatric) (principal); R53.83 Other fatigue; R06.83 Snoring | CPT/HCPCS: 95806 ==

== ENCOUNTER 2022-10-13 15:32 | Outpatient (REF) | payer MEDICARE, SELFPAY ==
--- NOTE | ~2022-10-13 | XR_ITS ---
EXAMINATION: XR FOOT, RIGHT CLINICAL INFORMATION: Third toe pain. COMPARISON: None available. TECHNIQUE: AP, lateral, and oblique views of the right foot. FINDINGS: The bones and soft tissues are unremarkable. No fracture is detected. Alignment is anatomic. Joint spaces are maintained. XR/XR foot RT min 3V IMPRESSION: Normal right foot.
[2022-10-13 18:42] LABS: Anion Gap 14 (12-20); Blood Urea Nitrogen 18 mg/dL (9-16); C Reactive Protein 0.62 mg/dL (< or = 0.50); Calcium 9.9 mg/dL (8.4-10.2); Carbon Dioxide 25 mmol/L (22-29); Chloride 106 mmol/L (96-108); Estimated Glomerular Filt Rate > 60; Glucose Random 90 mg/dL (60-115); Potassium 3.9 mmol/L (3.3-5.1); Sodium 141 mmol/L (135-145)
[2022-10-13 18:55] LABS: Erythrocyte Sedimentation Rate 7 MM/HR (0-20)
== END 2022-10-13 15:33 | disposition home or self-care (01) ==
LOC: HO.LAB 15:32
PROVIDERS: PCP Internal Medicine; Visit Provider Internal Medicine
DX: M79.671 Pain in right foot (principal); Z87.39 Personal history of other diseases of the musculoskeletal system and connective tissue
CPT/HCPCS: 36415; 73630; 80048; 84550; 85652; 86140

== ENCOUNTER 2023-04-11 11:50 | Outpatient (REF) | payer MEDICARE, SELFPAY ==
[2023-04-11 13:37] LABS: Anion Gap 8 (12-20); Blood Urea Nitrogen 15 mg/dL (9-16); Calcium 9.5 mg/dL (8.4-10.2); Carbon Dioxide 29 mmol/L (22-29); Chloride 108 mmol/L (96-108); Estimated Glomerular Filt Rate > 60; Glucose Random 97 mg/dL (60-115); Potassium 4.4 mmol/L (3.3-5.1); Sodium 141 mmol/L (135-145)
[2023-04-11 14:01] LABS: Free T4 (Free Thyroxine) 1.21 ng/dL (0.71-1.85); Thyroid Stimulating Hormone 0.71 uIU/mL (0.32-4.0)
== END 2023-04-11 11:51 | disposition home or self-care (01) ==
LOC: HO.LAB 11:50
PROVIDERS: PCP Internal Medicine; Visit Provider Internal Medicine
DX: R00.2 Palpitations (principal); E78.00 Pure hypercholesterolemia, unspecified
CPT/HCPCS: 36415; 80048; 84439; 84443; 86140

== ENCOUNTER → 2023-04-25 07:56 | Outpatient (REF) | payer MEDICARE, SELFPAY ==
--- NOTE | 2023-04-25 08:03 | CA_ITS ---
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 The calculated ejection fraction is 70% by biplane method. - No obvious valvular pathology seen on this study. Findings Left Ventricle Normal left ventricular cavity size. There is mildly increased left ventricular wall thickness. The left ventricular systolic function is normal. The calculated ejection fraction is 70% by biplane method. There is no evidence of regional wall motion abnormalities. Diastolic function is normal for age. LV peak GLS measurement not accurate. Right Ventricle Normal right ventricular cavity size and systolic function. Atria Both atria are normal in size. Aortic Valve There is a normal trileaflet aortic valve. There is no aortic valve stenosis. There is no aortic valve regurgitation. Mitral Valve The mitral valve appears normal. There is no mitral valve regurgitation. There is no mitral valve stenosis. Pulmonic Valve The pulmonic valve is likely normal. Tricuspid Valve There is trace tricuspid valve regurgitation. There is no evidence of pulmonary hypertension. Great Vessels The asc aorta is normal in size. Venous The inferior vena cava is normal in size and collapses greater than 50% with inspiration. Pericardium/Pleural There is a trivial pericardial effusion. Prior Study Comparison No significant change compared to prior study dated: 05/05/2004. Recommendations, Care & Conclusions No obvious valvular pathology seen on this study. Measurements 2D Linear Measurements IVSd: 1.20 0.6-0.9/0.6-1.0 cm LVIDd: 3.19 3.9-5.3/4.2-5.9 cm LVIDd Index: 1.82 2.4-3.2/2.2-3.1 cm/m2 LVIDs: 1.81 2.0-3.6 cm LVPWd: 1.18 0.7-1.1 cm LA Diam: 2.70 2.7-3.8/3.0-4.0 cm LAIDs Index: 1.54 1.5-2.3 cm/m2 LV Mass: 145.96 67-162/88-224 g LV Mass Index: 83.41 43-95/49-115 g/m2 LVOT Diam: 1.90 3.0+(-)1.3 cm 2D Systolic Function EF 4C: 73.60 >55% EF 2C: 65.40 >55% EF BiP: 69.50 >55% Mitral Valve MV Pk E: 0.69 MV PK A: 0.85 MV Decel Time: 234.00 E/A: 0.80 E'Lateral: 6.09 E'Medial: 5.87 E/E' Med: 11.70 E/E' Lat: 11.30 PHT: 69.00 MVA PHT: 3.19 Decel Redwood: 2.93 Aortic Valve AoV Pk Andres: 0.96 AoV Mn Andres: 0.74 AoV VTI: 0.23 AoV Pk Grad: 4.00 Aov Mn Grad: 2.00 MESHA Cont.VTI: 2.78 LVOT LVOT Pk Andres: 0.90 LVOT Mn Andres: 0.67 LVOT VTI: 0.23 LVOT Pk Grad: 3.00 LVOT Mn Grad: 2.00 LVOT Diam: 1.90 LVOT Area: 2.84 Diastolic Function MV Pk E: 0.69 MV Pk A: 0.85 E/A: 0.80 E'Medial: 5.87 E/E' Med: 11.70 E' Laterial: 6.09 E/E' Lat: 11.30 Right Ventricle TAPSE (mm): 17.70 TVS' Andres: 11.90 Tricuspid Valve TR Pk Andres: 2.24 TR Pk Grad: 20.00 Great Vessels Aorta Sinus of Valsalva: 3.20 2.0-3.5 cm Ao Asc: 2.80 2.1-3.4 cm Pulmonary Valve PV Pk Andres: 1.19 Peak PV Grad: 6.00 Updated in Other Vendor System with Status of Final Kevin Culver MD electronically signed on 04/26/2023 10:27:44 AM with status of Final
--- NOTE | 2023-04-25 08:04 | HM_ITS ---
Conclusion: 1. Patient was monitored for total period of 2 days and 3 hours 2. Baseline was normal sinus with average heart of 79 beats per minute 3. No significant pauses or arrhythmias noted 4. Patient reported multiple events of thumping correlating with sinus rhythm MTDD
== END ==
LOC: HO.CARD 07:56
PROVIDERS: PCP Internal Medicine; Visit Provider Internal Medicine
DX: R00.2 Palpitations (principal)
CPT/HCPCS: 93242; 93306

== ENCOUNTER → 2023-04-25 08:03 | Outpatient (BNV) | payer MEDICARE, SELFPAY | PROVIDERS: PCP Internal Medicine; Visit Provider Internal Medicine | DX: R00.0 Tachycardia, unspecified (principal) | CPT/HCPCS: 93227; 93306 ==

== ENCOUNTER 2023-09-15 08:00 | Outpatient (RCR) | payer MEDICARE, SELFPAY | END 2023-12-07 14:54 | disposition home or self-care (01) | LOC: HO.PTCHIC 08:00 | PROVIDERS: PCP Internal Medicine; Visit Provider Physician Assistant Surgical | DX: M75.42 Impingement syndrome of left shoulder (principal) | CPT/HCPCS: 97110; 97161 ==

== ENCOUNTER 2024-02-09 08:00 | Outpatient (RCR) | payer MEDICARE, SELFPAY | END 2024-06-21 07:55 | disposition home or self-care (01) | LOC: HO.PTCHIC 08:00 | PROVIDERS: PCP Internal Medicine; Visit Provider Physician Assistant Surgical | DX: M75.42 Impingement syndrome of left shoulder (principal) | CPT/HCPCS: 97110; 97140; 97162 ==

== ENCOUNTER 2024-08-08 15:18 | Outpatient (AMB) | payer MEDICARE, SELFPAY ==
--- NOTE | 2024-08-08 14:52 | MHC.PC.OV ---
Vital Signs 08/08/24 15:45 Height 5 ft 4 in Weight 154 lb BMI 26.4 BP 132/80 Blood Pressure Location Lt brachial Position Sitting Pulse 84 Pulse Source Pulse Oximeter Temp 97.5 F Temp Source Axillary Pulse Oximetry (%) 97 Oxygen Delivery Method Room Air Intake Visit Reasons: Routine Eyelet Row Marker Required: No Accompanied by: Self / Same As Patient Allergies No Known Allergies [No Known Allergies*] Allergy (Verified 08/08/24 14:53) Tobacco use date assessed: 08/08/24 Fall risk assessment: No Falls in past year Last assessed Fall Risk: 08/08/24 Dental Screening Dental Screen Date: 08/08/24 Did you have a dental visit in the last 12 months?: Yes Did you have a dental problem in the last 6 months where you did not have access to dental care?: No HPI HPI Comments History of Present Illness Details 68 year old female with a past medical history of hyperlipidemia, insomnia, kidney stones, gout, presenting for follow up. Last seen by PCP in Mar for rash at that time Hyperlipidemia: On atorvastatin. NEOS for bilateral shoulder pain History of gout. On allopurinol. Right ear crackling. Not on histamine Goes to [facility]-Dr Merrill once annually as needed. 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 Thinking about getting shingrix Goes to [facility] ROS CONSTITUTIONAL: Denies weight loss, fever and chills. HEENT: Denies changes in vision and hearing. RESPIRATORY: Denies SOB and cough. CV: Denies palpitations and CP GI: Denies abdominal pain, nausea, vomiting and diarrhea. : Denies dysuria and urinary frequency. MSK: Denies new myalgia and joint pain. SKIN: Denies rash and pruritus. NEUROLOGICAL: Denies headache PSYCHIATRIC: Denies recent changes in mood. PHYSICAL EXAM: GENERAL: Alert and oriented x 3. NAD EYES: EOMI. Anicteric. HENT: Moist mucous membranes. No scleral icterus. No cervical lymphadenopathy. LUNGS: Clear to auscultation bilaterally. CARDIOVASCULAR: Regular rate and rhythm. No murmur. No JVD. ABDOMEN: Soft, non-tender +bs EXTREMITIES: No edema. Non-tender. SKIN: No rashes or lesions. Warm. NEUROLOGIC: No focal neurological deficits. CN II-XII grossly intact PSYCHIATRIC: Cooperative. Appropriate mood and affect [facility] Medical History Renal calculi Surgical History History of colonoscopy (~01/25/16) Family History Mother No problems noted. Father No problems noted. Social History Housing: House Patient Tobacco Use Status: Never used Tobacco e-Cigarette/Vaping Use: Never Used service: No Current occupational status: employed Cognitive needs: No Hearing needs: No Vision needs: Yes (reading glasses) Questionnaire PHQ-9 Over the last 2 weeks, how often have you been bothered by any of the following problems? 1. Little interest or pleasure in doing things: not at all 2. Feeling down, depressed, or hopeless: not at all 3. Trouble falling or staying asleep, or sleeping too much: not at all 4. Feeling tired or having little energy: not at all 5. Poor appetite or overeating: not at all 6. Feeling bad about yourself - or that you are a failure or have let yourself or your family down: not at all 7. Trouble concentrating on things, such as reading the newspaper or watching television: not at all 8. Moving or speaking so slowly that other people could have noticed. Or the opposite - being so fidgety or restless that you have been moving around a lot more than usual: not at all 9. Thoughts that you would be better off or of hurting yourself in some way: not at all Total score: 0 Depression Screening Interpretation: Negative Depression Screening Done: Yes 11538 - PHQ-9 Billing: Yes Source: Developed by Drs. Demarcus Weinstein, Amarilys Carrington, Geo Yanez and colleagues, with an educational wendy from [employer]. Thrive Questionnaire Date Thrive assessed: 08/08/24 I am a: Patient Within the past 12 months, did the food you bought not last and you didn't have the money to get more?: Never true Within the past 12 months, did you worry whether your food would run out before you got money to buy more?: Never true Do you have trouble paying for medicines?: No Do you have trouble getting transportation to medical appointments?: No Do you have trouble paying your heating and electricity bill?: No Do you have trouble taking care of your child, family member or friend?: No Do you have trouble with day-to-day activities such as bathing, preparing meals, shopping, managing finances, etc.?: No Are you currently unemployed and looking for a job?: No Are you interested in more education?: No THRIVE Score: 0 AUDIT C Alcohol Use Questionnaire (AUDIT-C) 1. How often do you have a drink containing alcohol?: Never 3. How often do you have six or more drinks on one occasion?: Never Total Score: 0 MICAELA-7 AMB Questionnaire MICAELA-7 Date MICAELA - 7 assessed: 08/08/24 Feeling nervous, anxious, or on edge: 0 = Not at all Not being able to stop or control worryin = Not at all Worrying too much about different things: 0 = Not at all Trouble relaxin = Not at all Being so restless that it is hard to sit still: 0 = Not at all Becoming easily annoyed or irritable: 0 = Not at all Feeling afraid as if something awful might happen: 0 = Not at all Total MICAELA-7 score (0-4 normal; 5-9 mild; 10-14 moderate; 15-21 severe): 0 Source: Developed by Drs. Demarcus Weinstein, Amarilys Carrington, Geo Yanez and colleagues, with an educational wendy from [employer]. Physical exam (Primary Care) Vital Signs: Last Vital Signs Temp 97.5 F 08/08/24 15:45 Pulse 84 08/08/24 15:45 BP 132/80 08/08/24 15:45 Pulse Ox 97 08/08/24 15:45 Oxygen Delivery Method Room Air 08/08/24 15:45 BMI result Body Mass Index 26.4 Tobacco/Smoking Status: Tobacco use Status Tobacco use date assessed 08/08/24 08/08/24 15:54 Patient Tobacco Use Status Never used Tobacco 08/08/24 15:54 e-Cigarette/Vaping Use Never Used 08/08/24 15:54 PHQ-9: PHQ-9 Score PHQ-9: Total score 0 08/08/24 16:03 Depression Screening Interpretation: Negative Thrive Assessment: Date of Thrive Assessment Date Thrive assessed 08/08/24 08/08/24 15:54 Coding Level of Care Code New Pt Level 4 (63224) Complex EM visit Add On G2211 Diagnoses Screening for metabolic disorder Z Borderline abnormal TFTs R94.6 Hyperlipidemia, unspecified hyperlipidemia type E78.5 Hyperlipidemia type: unspecified Chronic pain of both shoulders M25.511; M25.512; G89.29 Chronicity: chronic Additional Codes PHQ-9 - 42056 - PHQ-9 Billing: Yes ([id number]) Assessment & Plan Assessment & Plan (1) Screening for metabolic disorder: Code(s): Z13.228 - Encounter for screening for other metabolic disorders Category: Medical (2) Borderline abnormal TFTs: Code(s): R94.6 - Abnormal results of thyroid function studies Category: Medical (3) Hyperlipidemia: Code(s): E78.5 - Hyperlipidemia, unspecified Category: Medical Qualifiers: Hyperlipidemia type: unspecified Qualified Code(s): E78.5 - Hyperlipidemia, unspecified (4) Bilateral shoulder pain: Code(s): M25.511 - Pain in right shoulder; M25.512 - Pain in left shoulder Category: Medical Qualifiers: Chronicity: chronic Qualified Code(s): M25.511 - Pain in right shoulder; M25.512 - Pain in left shoulder; G89.29 - Other chronic pain Plan 68 year old to establish care past medical,surgical, social, family history reviewed Chronic medical conditions are stable Labs ordered Orders: Orders TSH reflex Free T4 08/08/24 E78.5 - Hyperlipidemia, unspecified, M10.9 - Gout, unspecified, M25.511 - Pain in right shoulder, M25.512 - Pain in left shoulder, M72.2 - Plantar fascial fibromatosis, R94.6 - Abnormal results of thyroid function studies, Z - Encounter for screening for other metabolic disorders Lipid Panel 08/08/24 E78.5 - Hyperlipidemia, unspecified, M10.9 - Gout, unspecified, M25.511 - Pain in right shoulder, M25.512 - Pain in left shoulder, M72.2 - Plantar fascial fibromatosis, R94.6 - Abnormal results of thyroid function studies, Z13.228 - Encounter for screening for other metabolic disorders Complete Blood Count Auto Diff 08/08/24 E78.5 - Hyperlipidemia, unspecified, M10.9 - Gout, unspecified, M25.511 - Pain in right shoulder, M25.512 - Pain in left shoulder, M72.2 - Plantar fascial fibromatosis, R94.6 - Abnormal results of thyroid function studies, Z13.228 - Encounter for screening for other metabolic disorders Uric Acid 08/08/24 E78.5 - Hyperlipidemia, unspecified, M10.9 - Gout, unspecified, M25.511 - Pain in right shoulder, M25.512 - Pain in left shoulder, M72.2 - Plantar fascial fibromatosis, R94.6 - Abnormal results of thyroid function studies, Z13.228 - Encounter for screening for other metabolic disorders Hemoglobin A1c 08/08/24 E78.5 - Hyperlipidemia, unspecified, M10.9 - Gout, unspecified, M25.511 - Pain in right shoulder, M25.512 - Pain in left shoulder, M72.2 - Plantar fascial fibromatosis, R94.6 - Abnormal results of thyroid function studies, Z13.228 - Encounter for screening for other metabolic disorders Comprehensive Met. Panel 08/08/24 E78.5 - Hyperlipidemia, unspecified, M10.9 - Gout, unspecified, M25.511 - Pain in right shoulder, M25.512 - Pain in left shoulder, M72.2 - Plantar fascial fibromatosis, R94.6 - Abnormal results of thyroid function studies, Z13.228 - Encounter for screening for other metabolic disorders Medications: New lorazepam Take 1 tab oral 90 minutes prior to procedure, repeat 30 minutes prior to procedure as needed for persistent anxiety 1 mg PO DAILY PRN 2 tabs 0RF anxiety Discontinued ondansetron HCl (Zofran) Discontinued Reason: Patient no longer taking 4 mg PO Q6H PRN 10 tabs 0RF nausea and vomiting prednisone Discontinued Reason: Patient no longer taking 20 mg PO DAILY 4 tabs 0RF ketorolac Do not use Motrin/Aleve/NSAID while you are taking this medication, only use Tylenol for breakthrough pain. Discontinued Reason: Patient no longer taking 10 mg PO TID 5 days PRN 10 tabs 0RF pain phenazopyridine Discontinued Reason: Patient no longer taking 100 mg PO TID PRN 6 tabs 0RF pain
[2024-08-08 15:45] VITALS: BP 132/80; PULSE 84; TEMP 36.4; O2SAT 97; BMI 26.4
--- OUTSIDE RECORDS SUMMARY | 2024-08-08 15:52 | XMS_ITS | Clinical Summary ---
Author Organization [facility] Address [address] [place] [address] Phone Care Team Providers Care Carpenter/Labor Name Role Phone Louie Miller MD Primary Care Provider [phone] Encounters Date Type Department Care Team Description 05/27/2024 Lab Requisition [facility] - Main Lab [address] [facility] [address] Deandra Marroquin PA Calculus of kidney; Hypercalcemia from Last 3 Months Social History Tobacco Use Types Packs/Day Years Used Date Smoking Tobacco: Never Assessed Comments Unknown Sex and Gender Information Value Date Recorded Sex Assigned at Not on file Legal Sex Female 11:08 PM EST Gender Identity Not on file Sexual Orientation Not on file Plan of Treatment Health Maintenance Due Date Last Done Comments Breast Cancer Screening 1955 DTaP,Tdap,and Td Vaccines (1 - Tdap) 09/11/1975 Pneumococcal Vaccine: 50+ Ye ars (1 of 1 - PCV) 2006 Zoster Vaccines (1 of 2) 2006 COVID-19 Vaccine ( - 2023-2 5 season) 2023 Colorectal Cancer Screening: Colonoscopy 05/28/2024 Depression Screening 05/28/2024 Falls Risk Assessment 05/28/2024 Hepatitis C Screening 05/28/2024 Medicare Annual Wellness Visit 05/28/2024 Osteoporosis Screening (Bone Density Screening) 05/28/2024 Social Influencers of Health Screening 05/28/2024 Influenza Vaccine (Season Ended) 2024 RSV Immunization Adult Patie nts (1 - 1-dose 75+ series) 09/11/2031 HIB Vaccines Aged Out No longer eligi ble based on patient's age to complete this topic HPV Vaccines Aged Out No longer eligi ble based on patient's age to complete this topic Hepatitis A Vaccines Aged Out No long er eligible based on patient's age to complete this topic Hepatitis B Vaccines Aged Out No long er eligible based on patient's age to complete this topic IPV Vaccines Aged Out No longer eligi ble based on patient's age to complete this topic MMR Vaccines Aged Out No longer eligi ble based on patient's age to complete this topic Meningococcal ACWY Vaccine Aged Out N o longer eligible based on patient's age to complete this topic Meningococcal B Vaccine Aged Out No l onger eligible based on patient's age to complete this topic RSV Immunization Patients Un leta 20 months Aged Out No longer eligible b ased on patient's age to complete this topic Varicella Vaccines Aged Out No longer eligible based on patient's age to complete this topic Procedures Procedure Name Priority Date/Time Associated Diagnosis Comments PARATHYROID HORMONE INTACT Routine 05/27/2024 12:00 AM EST Calculus of kidney Hypercalcemia VITAMIN D 25 HYDROXY Routine 05/27/2024 12:00 AM EST Calculus of kidney Hypercalcemia from Last 3 Months Results * (ABNORMAL) Vitamin D 25 hydroxy (05/27/2024 12:00 AM EST) Vit D, 25-Hydroxy 9.9(L) 30.0 - 80.0 ng/mL LAB CHEMISTRY METHOD 05/27/2024 8:17 PM EST [facility] Blood Venous blood specimen / Unknown 05/27/2024 05/27/2024 6:16 PM EST us Deandra KESSLER LAB BLOOD ORDERABLES Final Re sult [facility] [address] [place] [address], [place] [phone] * Parathyroid hormone intact (05/27/2024 12:00 AM EST) PTH 40.5 18.5 - 88.0 pcg/mL LAB CHEMISTRY METHOD 05/27/2024 8:01 PM EST [facility] Blood Venous blood specimen / Unknown 05/27/2024 05/27/2024 6:16 PM EST Deandra KESSLER LAB BLOOD ORDERABLES Final Re sult [facility] [address] [place] [address], from Last 3 Months Insurance MEDICARE [facility] Care Teams Carpenter/Labor Relationship Specialty Start Date End Date Louie Miller MD [address] [place] [address] Dr Yaw [place] PCP - General Internal Medicine 05/27/24
--- OUTSIDE RECORDS SUMMARY | 2024-08-08 15:52 | XMS_ITS | Data Portability ---
Author Organization [place] - [facility], [facility] Address [address] [place] [address] Assessment No assessment recorded. Plan of Treatment Reminders Order Date Submit Date Provider Last Modified By Organization Details Last Modified Time Details Appointments RECHECK 15 2024 09:45A M Sherly Santos PA-C Not available Not available Not available Lab None recorded. Referral physical therapist referral - Bilateral subacromi al impingeme nt1. Rotator cuff strengthe jozef program.2 . Scapular stabiliza tion program including strengthe jozef, mobilizat ion, and proprioce ption.3. End stage range stretchin g4. Soft tissue modalitie s as indicated .5. Home exercise program.6 . Therapeut ic exercises : all exercises prn per therapist .7. Manual therapy: all manual therapy prn per therapist . 2023 024 [email or web address] Not available 12/10/2023 21:50:33 physical therapist referral - bilateral shoulder impingeme nt1. Rotator cuff strengthe jozef program.2 . Scapular stabiliza tion program including strengthe jozef, mobilizat ion, and proprioce ption.3. End stage range stretchin g4. Soft tissue modalitie s as indicated .5. Home exercise program.6 . Therapeut ic exercises : all exercises prn per therapist .7. Manual therapy: all manual therapy prn per therapist . 2023 Camille mccormick Not available 07/24/2023 14:20:51 Procedures None recorded. Surgeries None recorded. Imaging MRI, shoulder, w/o contrast - right shoulder eval RCT 2023 Camille mccormick [facility] ([facility]), [address], [place], [address], 07/24/2023 14:20:51 Medication Orders meloxicam 15 mg tablet 2023 025 [id number], [address] [place], [address], 04/29/2024 15:30:40 Patient TargetsNo targets recorded. Patient Instructions Encounter Date Encounter Id Patient Instructions Last Modified By Organization Details Last Modified Time 07/24/2023 [id number] You have been provided with a cortisone injection in order to reduce the pain and inflammation that you are experiencing. The injection consists of two medications. Cortisone (an anti-inflammatory that will take 48-72 hours to take effect) and Lidocaine (a numbing agent that will last 2-3 hours). Please note that not everyone will have a lasting response following the injection. PATIENT INSTRUCTIONS Once the Lidocaine wears off, you may have an increase in your pain. I recommend icing the affected area for 20 minutes 3-4 times per day. It is recommended that you refrain from any high level activities using the joint or limb that was injected for approximately 24-48 hours. Normal day-to-day activities are generally not a problem. POSSIBLE SIDE EFFECTS Individuals with dark complexions may experience some skin discoloration locally at the site of the injection. There is the possibility of an increase in discomfort within 48 hours following the injection. This is called a ? f lare? . To help minimize the chances of this, please see the post-injection instructions above. There is a less than 1% chance of an infection. If you notice any signs of infection (redness, warmth, drainage, fever greater than 100 degrees) please call our office or contact us through the portal ASAP. [email or web address] Not available 07/19/2023 13:57:14 Reason for Referral Physical Therapist Referral for Impingement syndrome of left shoulder region bilateral shoulder impingement1. Rotator cuff strengthening program.2. Scapular stabilization program including strengthening, mobilization, and proprioception.3. End stage range stretching4. Soft tissue modalities as indicated.5. Home exercise program.6. Therapeutic exercises: all exercises prn per therapist.7. Manual therapy: all manual therapy prn per therapist. Referring Physician: Sherly Santos Orthopedic Surgery, [id number] Encounter Date: 07/24/2023 Physical Therapist Referral for Impingement syndrome of left shoulder region Bilateral subacromial impingement1. Rotator cuff strengthening program.2. Scapular stabilization program including strengthening, mobilization, and proprioception.3. End stage range stretching4. Soft tissue modalities as indicated.5. Home exercise program.6. Therapeutic exercises: all exercises prn per therapist.7. Manual therapy: all manual therapy prn per therapist. Referring Physician: Sherly Santos, Orthopedic Surgery, Encounter Date: 12/08/2023 Results Created Date Observation Date Name Description Value Unit Range Abnormal Flag Note LastModifiedBy Organization Detail LastModifiedTime 12/01/19 24 01/24/2020 janina steward/yoselyn unger tic resul t No observ ation record ed. [email or web address] Not Available 11/03 15:38:48 Result Notes None recorded. Problems Name Problem SNOMED Code Status Onset Date Resolution Date Notes Provider Name and Address Organization Details Recorded Time No complaints [id number] Active Status : 'A'; Not Available [facility] 4 09:20:08 Problem Notes None recorded. Procedures Surgical History Date Name Laterality Status Provider Name and Address Organization Details Recorded Time 5 Sports Shoulder Bilateral completed CHECO Hoff-C [address] [facility], [place], [address], [facility] 04/29/2024 15:41:28 4 Sports Shoulder Bilateral completed Sherly Tom PA-C [address] [facility], [place], [address], [facility] 12/07/2023 16:21:59 4 Sports Shoulder completed Sherlymeri Santos PA-C [address], [place], [address], [facility] 09/01/2023 15:58:20 4 Sports Shoulder completed Sherly Santos PA-C [address], [place], [address], [place] - [facility] 07/24/2023 14:20:38 Imaging Results Imaging Date Name Status LastModified by Organiz ation Details LastModified Time 01/24/2020 imaging/diag nostic result completed [email or web address] Information not available 12/01/2023 15:38:48 Procedure Notes None recorded. Medical Equipment None Reported. Allergies No known drug allergies Medications Name Sig Start Date Stop Date Status Note LastModified by Organization Details LastModified Time triazolam 0.25 mg tablet TAKE ONE TABLET 90 MINUTES BEFORE YOUR DENTAL APPT. 04/29 completed Not Available Not Available Not Available atorvastati n 10 mg tablet TAKE 1 TABLET BY MOUTH EVERY DAY active Not Available Not Available No t Available azithromyci n 250 mg tablet TAKE 1 TABLET BY MOUTH EVERY DAY 07/23 completed Not Available Not Available Not Available fluconazole 150 mg tablet TAKE 1 TABLET BY MOUTH 07/23 completed Not Available Not Available Not Available valacyclovi r 1 gram tablet TAKE 1 TABLET BY MOUTH THREE TIMES A DAY active Not Available Not Available No t Available meloxicam 15 mg tablet Take 1 tablet every day by oral route with meal(s) for 30 days. 04/29 completed Not Available Not Available Not Available prednisone 20 mg tablet TAKE 1 TABLET BY MOUTH EVERY DAY 07/23 completed Not Available Not Available Not Available allopurinol 100 mg tablet TAKE 1 TABLET BY MOUTH EVERY DAY active Not Available Not Available No t Available tamsulosin 0.4 mg capsule TAKE 1 CAPSULE BY MOUTH EVERY DAY NEEDED TO ASSISIT WITH STONE PASSAGE 04/29 completed Not Available Not Available Not Available erythromyci n 5 mg/gram (0.5 %) eye ointment APPLY 1 CENTIMETE RS INTO RIGHT EYE FOR 10 DAYS 08/28 completed Not Available Not Available Not Available clotrimazol e-betametha sone 1 %-0.05 % topical cream APPLY TO AFFECTED AREA TWICE A DAY NEEDED active Not Available Not Available No t Available estradiol 0.01% (0.1 mg/gram) vaginal cream INSERT 1 GRAM VAGINALLY 2 TIMES PER WEEK active Not Available Not Available No t Available scopolamine 1 mg over 3 days transdermal patch APPLY 1 PATCH TO SKIN EVERY THREE DAYS 07/23 completed Not Available Not Available Not Available propranolol 20 mg tablet TAKE 1 TABLET BY MOUTH EVERY DAY active Not Available Not Available No t Available diazepam 5 mg tablet Take 1 tablet as needed by oral route as directed. 08/25 completed Not Available Not Available Not Available Vitals Date Recorded Body height Body mass index (BMI) Body weight Provider Name and Address Organization Details Last Updated DateTime 07/04/2023 162.56 cm 26.6 kg/m2 77306.82 g STEVE SULLIVAN [facility] 07/04/2023 09:10:44 Date Recorded Body height Body mass index (BMI) Body weight Provider Name and Address Organization Details Last Updated DateTime 07/24/2023 162.56 cm 27.5 kg/m2 20881.78 g VAL COREY [facility] 07/24/2023 13:51:45 Date Recorded Body height Body mass index (BMI) Body weight Provider Name and Address Organization Details Last Updated DateTime 09/01/2023 162.56 cm 27.5 kg/m2 37492.78 g DENISSE STEINER [facility] 09/01/2023 15:44:34 Date Recorded Body height Body mass index (BMI) Body weight Provider Name and Address Organization Details Last Updated DateTime 12/08/2023 162.56 cm 27.5 kg/m2 42643.78 g Eva medina [facility] 12/08/2023 14:40:07 Date Recorded Body height Body mass index (BMI) Body weight Provider Name and Address Organization Details Last Updated DateTime 04/29/2024 162.56 cm 27.5 kg/m2 33488.78 g Bozena Hubbard [facility] 04/29/2024 15:24:47 Social History None recorded. Functional Status None recorded. Mental Status None recorded. Family History Nothing Reported. Medical History Condition Response Allergies/Hayfever N Coronary Artery Disease N Anxiety/Depression N Breathing or lung disorders N Emphysema N Nerve Disorders N Thyroid Problems N COPD N Pacemaker N Anemia N Kidney/Bladder Problems N Vascular Disease N Heart Trouble N Heart Attack (DE) N Gastrointestinal Disease N Cholesterol N Diabetes N Autoimmune disease N Bleeding Disorder N Orthotics N Arthritis N Seizures/Epilepsy N Blood Clot N AIDS/HIV N Congestive Heart Failure (CHF) N Acid Reflux (GERD) N Cancer N Stroke N Asthma N Circulation Problems N Peripheral Vascular Disease N Sleep Apnea N Hepatitis N Heart Disease N Rheumatoid Arthritis N Arrhythmia N Pulmonary Embolism N Headaches N Fibromyalgia N Hypertension N Osteoporosis N Gynecological HistoryNo gynecological history recorded. Obstetrics History GPAL:G 0 P 0 0 0 0 Past Encounters Encounter ID Performer Location Encounter Start Date Encounter Closed Date Diagnosis/Indication Diagnosis SNOMED-CT Code Diagnosis ICD10 Code Diagnosis Note [id number] MARIBEL Galloway [address] [place] [address] 07/04/2023 08:56:21 07/24/2023 09:51:55 Bilateral plantar fasciitis [id number] M72.2 [id number] MARIBEL Hoff [address] [place] [address] 07/24/2023 13:45:49 08/14/2023 08:58:52 Impingement syndrome of right shoulder region 2274568528 46609 M75.41 Patient has substantia l weakness with rotator cuff testing of the right upper extremity especially compared to contralate ral extremity. She has attempted conservati ve treatment efforts including activity modificati on, anti-infla mmatories including meloxicam, Tylenol, resting and icing with no sustained relief. She is also attempted cortisone injection with little relief. Therefore would recommend MRI of the right shoulder to evaluate for rotator cuff tear. Will hold off on injection on this side given that she does have weakness and would like to evaluate for rotator cuff. Follow-up in 3 to 4 weeks for MRI review. Discussed risks and benefits associated with anti-infla mmatory use. Patient should not take any other NSAID's while taking this medication . Drink plenty of water. Stop if you develop any GI upset, or signs/symp toms of GI bleed including black/bloo dy stools. Take with food. Prescribed {{meloxica m 15 mg PO daily*}} Impingemen t syndrome of left shoulder region [id number] 14429 M75.42 PLANThe patient has done well with conservati ve management in regards to the shoulder with good clinical response to injections in the past. Recommend continued conservati ve management with repeat injection( s) today. Moderating activities with the upper extremity recommende d also. See procedure notes for injection details. [id number] Sherly Santos PA-C [address] [place] [address] 09/01/2023 15:05:56 09/22/2023 16:17:38 Impingement syndrome of right shoulder region 1192543365 18583 M75.41 Patient was not able to tolerate MRI. She has been making good progress with physical therapy and has improvemen t in her pain and symptoms. She would like to attempt right shoulder injection today which we will perform. She responded favorably to left shoulder injection at her previous visit. She may follow-up on an as-needed basis if symptoms worsen or do not continue to improve. Otherwise follow-up as needed. [id number] Sherly Santos PA-C [facility] [address] [place] [address] 12/08/2023 14:36:35 01/03/2024 12:50:32 Impingement syndrome of right shoulder region 1670609082 46542 M75.41 Impingemen t syndrome of left shoulder region 8872359422 85329 M75.42 PLANThe patient has done well with conservati ve management in regards to the shoulder with good clinical response to injections in the past. Recommend continued conservati ve management with repeat injection( s) today. Moderating activities with the upper extremity recommende d also. See procedure notes for injection details. [id number] MARIBEL HoffA - [facility] [address] [address] 04/29/2024 15:17:12 05/10/2024 11:06:35 Impingement syndrome of left shoulder region [id number] 49476 M75.42 PLAN: Patient has positive impingemen t testing with subsequent limited range of motion. I discussed nature patient's diagnosis and imaging in detail with the patient. I recommend rest, ice, and activity modificati ons. I also recommend corticoste roid injection into the subacromia l space to help improve pain and symptoms so that patient is better able to participat e in range of motion exercises. Patient was provided with formal physical therapy prescripti on to help improve shoulder kinetics, strength and overall function. Patient was advised to make use of oral anti-infla mmatories and participat e with home range of motion exercises as well. Patient will follow up with us in {{6-8 weeks as needed*}}, or if symptoms worsen/do not improve with conservati ve care. Impingemen t syndrome of right shoulder region 8910555334 17202 M75.41 Health Concerns Section Related Observation LastModified by Organization Detai ls LastModified Time None Recorded Concern Status LastModified by Organization Details LastModified Time None Recorded Advance Directives Directive None Recorded Payers Encounter Date Sequence Insurance Name Policy Number Policy Gardner Covered Member ID Gardner Member ID Guarantor Name 07/04/2023 1 [place] [employer] Perla J Magoon [id number] Perla Magoon 07/04/2023 2 [place] [id number] Perla Magoon [id number] Perla Magoon 07/24/2023 1 [place] Perla J Magoon [id number] Perla Magoon 07/24/2023 2 [place] [id number] Perla Magoon [id number] Perla Magoon 09/01/2023 1 [place] Perla J Magoon [id number] Perla Magoon 09/01/2023 2 [place] [id number] Perla Magoon [id number] Perla Magoon 12/08/2023 1 [place] [place] Perla J Magoon [id number] Perla Magoon 12/08/2023 2 [place] [id number] Perla Magoon [id number] Perla Magoon Notes Date Note Type Note Provider Name and Address Organization Details Recorded Time 07/04/2023 text/html I am seeing this patient under the supervision of Dr. Greenwood who was available but who did not see the patient.HPI: Patient is a 66-year-old female presenting to the office today for recheck of bilateral plantar fasciitis. Reports her pain continues to improve. Reports the right is more bothersome than the left. Reports that she has been stretching more frequently, but feels that she strained her hamstring while stretching which has slowed her stretching routine down. Denies interval trauma. Denies numbness or tingling.Past family, medical, social history and review of systems has been reviewed, updated and is located in the patient's chart.Examination: The patient is well appearing, alert and oriented x3 and in no acute distress. On inspection of the left foot and ankle, there is no edema, erythema, ecchymosis or deformity. Skin is intact, no open wounds. Patient is nontender about the rest of the foot and ankle. Negative calcaneal squeeze test. Range of motion is full and strength is intact. EHL and FHL intact. Neurovascularly intact distally. No gross instability. Calf is supple, nontender. Achilles tendon nontender and intact, no palpable defect noted. Skin is without lesions. Peripheral, vascular, lymphatic examination, skin, neurological, coordination, reflexes, sensation are within normal limits.X-rays ordered, obtained and reviewed independently today at [facility]: None indicated or performed today.Impression: Bilateral plantar fasciitisPlan: I discussed my findings and the situation with the patient. We discussed potential treatment options at this time. Patient will continue with her calf stretching and her inserts. Calf stretching technique was demonstrated again in the office today, including stretches that do not involve the hamstring if it is still bothering her. She will follow-up on an as needed basis. If things worsen she will call the office. Patient agrees with this plan. All questions were answered.Speech recognition organic chemistry teacher software was used to create portions of this document. An attempt at proofreading has been made to minimize errors. Please call for corrections. Griselda Mercado PA-C [address] [facility] [address], [place], [address], [facility] 07/04/2023 09:26:15 07/24/2023 text/html I am seeing the patient under the general supervision of {{Dr. Aure Galindo*}} who was available but who did not see the patient. History of Present Illness:Patient comes to the office with known history of {{glenohumeral arthritis subacromial impingement* degenera tive rotator cuff disease}} of the {{left Right Bilatera l*}} shoulder(s). She was previously evaluated by my colleague Werner elizabeth in March 2023. She received bilateral subacromial cortisone injections which she reports only provided very minimal relief. She has not tried physical therapy. Continues to localize pain to the lateral brachium. It is worse at night, with overhead range of motion or reaching activities. Does recall an initial overuse injury last summer when she moved 11,000 pounds of stone. Sherly Santos PA-C [address], [place], [address], [facility] 07/24/2023 14:22:13 09/01/2023 text/html I am seeing the patient under the general supervision of {{Dr. Aure Mclean* Dr. Galindo}} who was available but who did not see the patient. History of Present Illness:Patient comes to the office with known history of {{glenohumeral arthritis subacromial impingement* degenera tive rotator cuff disease}} of the {{left Right Bilatera l*}} shoulder(s). She presents today for follow up of right shoulder pain. We had referred her for an MRI of the right shoulder however she is not able to tolerate it due to claustrophobia. We even tried open MRI with Valium and she still was not able to tolerate this. We performed a left subacromial injection accompanied by physical therapy after her last visit and she does feel that this has been quite helpful so would like to try injection on the right shoulder as well. Presents today requesting right shoulder injection. Clinical history: She was previously followed by my colleague with treatment with bilateral shoulder injections in March 2023. She received bilateral subacromial cortisone injections which she reports only provided very minimal relief. She has not tried physical therapy. Continues to localize pain to the lateral brachium. It is worse at night, with overhead range of motion or reaching activities. Does recall an initial overuse injury last summer when she moved 11,000 pounds of stone. Sherly Santos PA-C [address], [place], [address], [facility] 09/01/2023 16:00:23 12/08/2023 text/html I am seeing the patient under the general supervision of {{Dr. Aure Galindo*}} who was available but who did not see the patient. History of Present Illness: Patient comes to the office with known history of {{glenohumeral arthritis subacromial impingement* degenera tive rotator cuff disease}} of the {{left Right Bilatera l*}} shoulder(s). The patient has done well with conservative management for their shoulder pain with good clinical response to cortisone injections in the past. Reports recently increasing discomfort over the past several weeks with no new injury or trauma. Pain is generalized about the shoulder and discomfort is worst at night. Last injections were {{ 08/02/23#}} Sherly Santos PA-C [address], [place], [address], [facility] 12/08/2023 14:52:52 04/29/2024 text/html I am seeing the patient under the general supervision of {{Dr. Looney* Dr. Vinay Galindo}} who was available but who did not see the patient. History of Present Illness: Patient comes to the office with known history of {{glenohumeral arthritis subacromial impingement* degenera tive rotator cuff disease}} of the {{left Right Bilatera l*}} shoulder(s). The patient has done well with conservative management for their shoulder pain with good clinical response to cortisone injections in the past. Reports recently increasing discomfort over the past several weeks with no new injury or trauma. Pain is generalized about the shoulder and discomfort is worst at night. Last injections were 12/27/23 Sherly Santos PA-C [address], [place], [address], [facility] 04/29/2024 15:49:15 OBGyn Episode No OBEpisode recorded.
--- OUTSIDE RECORDS SUMMARY | 2024-08-08 15:52 | XMS_ITS ---
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 Generated for Printi bin/King/eTransmitting on:?08/08/2024 03:52 PM EDT
--- OUTSIDE RECORDS SUMMARY | 2024-08-08 15:52 | XMS_ITS | Patient Health Record ---
[facility] [place] Address [address] [facility] [place] [address] Care Team Providers Care Optical Laboratory Mechanic Name Role Phone Louie Miller MD Primary Care Provider Unavaila Jessa Carranza Unavailable [phone] Reason For Referral No Information Medications Medication SIG (Take, Route, Frequency, Duration) Notes Start Date End Date Status Allopurinol 100 MG Oral for 90 Days Active Atorvastatin Calcium 10 MG TAKE 1 TABLET BY MOUTH EVERY DAY Oral for 90 Days Active Propranolol HCl 20 MG TAKE 1 TABLET BY M OUTH EVERY DAY Oral for 90 Days Active Social History Tobacco Use: [...] Are you an other tobacco user? No Plan Of Treatment No Information Insurance Providers Payer Name Payer Address Payer Phone Subscriber Number Group Number Insured Name Patient Relationship to Insured Coverage Start Date Coverage End Date Medicare National [facility] [address] [place] [address] [phone] [id number] Monica Perla Self - patient is the insured [employer] [address] [place] [address] [phone] [id number] Perla Anderson Self - patient is the insured Medical (General) History Medical History History ICD Code CAD (Cholesterol) Gout Chicken pox Surgical History Surgery Date(Month/Year) myomectomy 1988 09/18/89 08/17/92 thumb joint replacement 2016
--- OUTSIDE RECORDS SUMMARY | 2024-08-08 15:52 | XMS_ITS | Encounter Summary ---
Author Organization [facility] Address [address] [place] [address] Care Team Providers Care Safety Clothing And Equipment Developer Name Role Phone Louie Miller MD Primary Care Provider [phone] Encounter Details Date Type Department Care Team (Late st Contact Info) Description 05/27/2024 Lab Requisition [facility] - Main Lab [address] [place] [id number] Deandra Marroquin PA [address] [place] [address] Calculus of kidney; Hypercalcemia Social History Tobacco Use Types Packs/Day Years Used Date Smoking Tobacco: Never Assessed Comments Unknown Sex and Gender Information Value Date Recorded Sex Assigned at Not on file Legal Sex Female 11:08 PM EST Gender Identity Not on file Sexual Orientation Not on file documented as of this encounter Plan of Treatment Not on file documented as of this encounter Procedures Procedure Name Priority Date/Time Associated Diagnosis Comments VITAMIN D 25 HYDROXY Routine 05/27/2024 12:00 AM EST Calculus of kidney Hypercalcemia PARATHYROID HORMONE INTACT Routine 05/27/2024 12:00 AM EST Calculus of kidney Hypercalcemia documented in this encounter Results * Parathyroid hormone intact (05/27/2024 12:00 AM EST) PTH 40.5 18.5 - 88.0 pcg/mL LAB CHEMISTRY METHOD 05/27/2024 8:01 PM EST [facility] Blood Venous blood specimen / Unknown 05/27/2024 05/27/2024 6:16 PM EST Deandra KESSLER LAB BLOOD ORDERABLES Final Re sult Performing Organization Address City/[facility]/ZIP Co de Phone Number [facility] [address] [place] [address], [place] [phone] * (ABNORMAL) Vitamin D 25 hydroxy (05/27/2024 12:00 AM EST) Vit D, 25-Hydroxy 9.9(L) 30.0 - 80.0 ng/mL LAB CHEMISTRY METHOD 05/27/2024 8:17 PM EST [facility] Blood Venous blood specimen / Unknown 05/27/2024 05/27/2024 6:16 PM EST Deandra KESSLER LAB BLOOD ORDERABLES Final Re sult Performing Organization Address [facility] Co de Phone Number [facility] [address] [place] [address], [place] [phone] documented in this encounter Visit Diagnoses Diagnosis Calculus of kidney Hypercalcemia documented in this encounter Care Teams Safety Clothing And Equipment Developer Relationship Specialty Start Date End Date Louie Miller MD [address] [place] [address] Dr [place] PCP - General Internal Medicine 05/27/24 documented as of this encounter
--- OUTSIDE RECORDS SUMMARY | 2024-08-08 15:53 | XMS_ITS ---
Author Organization [facility] Address [address] [place] [address] Care Team Providers Care Professor Of Business Administration Name Role Phone Louie Miller MD Primary Care Provider Jessa Lugo [phone] Medications Medication SIG (Take, Route, Frequency, Duration) [...] 08/21/2023 Encounters Encounter Location Date Provider Diagnosis [facility] [address] [facility] [place] [address] 08/21/2023 Jessa Mendosa Plan Of Treatment No Information Progress Notes * Perla ANDERSONDOB:[birth year] (68 yo F)Acc No.[id number]:08/21/2023 Progress Notes Patient:?Perla ANDERSON Provider:?Jessa Mendosa DPM :01/06/1956???Age:67 Y???Sex:Female D ate:08/21/2023 Address:[address], [place] Pcp:Louie Miller MD Subjective: * Chief Complaints: * ??? * ROS:?General/Constitutional:?Nausea?denies.?Vomiting?denies.?Hunger Thirst?denies.?Loss appetite?denies.?Chills?denies.?Fatigue?denies.?Fever?denies.?Night Sweats?denies.?Unexplained weight loss?denies.?Unexplained weight gain?denies.?HEENTM:?Dentures?denies.?Dizziness?denies.?Glasses/contacts?denies.?Retinopathy?de nies.?Blurred/double vision?denies.?TMJ?denies.?Discharge/drainage?denies.?Implants?denies.?Sore throat?denies.?Dental implants?admits.?Hard of hearing ?denies.?Difficulty chewing/swallowing/speaking?denies.?Nose bleeds?denies.?Sore mouth?denies.?Respiratory:?On Oxygen?denies.?Pneumonia/pleurisy?denies.?Bronchitis?denies.?Emphysema?denies.?C oughing?denies.?Cough blood?denies.?Shortness of breath?denies.?Wheezing?denies.?Cardiovascular:?Pacemaker?denies.?MVP?denies.?WPW?denies.?CHF?denies.?Heart attack?denies.?Septal defect?denies.?Rapid beat?denies.?Chest pain ?denies.?Atrial Fib.?denies.?Murmur/Palpitations?admits.?Gastrointestinal:?Hemorrhoids?denies.?Stomach/Abdominal pain?denies.?Dark blood stool?denies.?Irritable bowel ?denies.?Constipation?denies.?Diarrhea?denies.?Hematology:?Swelling?denies.?Clots?denies.?Varicose Veins?denies.?Bruising?denies.?Bleeding problem?denies.?Genitourinary:?Blood urine?denies.?Frequent/Painfu/urination/bladder control?denies.?Kidney stones?admits.?Infection (UTI)?denies.?Nephropathy?denies.?sex trans dis (STD)?denies.?Prostate?denies.?Musculoskeletal:?Hammertoes?denies.?Bunions?denies.?Back Pain?denies.?Muscle Cramps/ Resting?denies.?Muscle cramps / walking?denies.?Generalized aches and pains?denies.?Weakness?denies.?Integ.:?Wolf?denies.?Scars?denies.?Corns/calluses?denies.?Ingrown nails?admits.?Painful nails?denies.?Open Sores?denies.?Rashes?denies.?Neurologic:?Difficulty sleeping?denies.?Brain disorder?denies.?Numbness?denies.?Balance trouble?denies.?Confusion?denies.?Fainting/blackouts?denies.?Tingling?denies.?Tr emors?denies.? * Medical History:?CAD (Choles terol), Gout, Chicken pox. * Surgical History:?myomectomy 1988, 09/18/89, 08/17/92, thumb joint replacement 2015. * Family History:?Mother: dece ased, arthritis, cancer, foot problems, high blood pressure.?Father: , kidney/liver disease, high blood pressure.? * Social History:?Tobacco Use:?Tobacco Use/Smoking?Are you a:?nonsmoker ?Additional Findings: Tobacco Non-User?Current non-smoker ?Tobacco use other than smoking?Are you an other tobacco user??No ???Drugs/Alcohol:?Drugs?Have you used drugs other than those for medical reasons in the past 12 months??No ?Alcohol Screen?Did you have a drink containing alcohol in the past year??Yes ?Points?0 ?Interpretation?Negative ???Miscellaneous:?Caffeine: no. ?Children: yes, 2. ?Marital status: . 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 * Medications:?Taking Proprano lol HCl 20 MG Tablet TAKE 1 TABLET BY MOUTH EVERY DAY Oral , Taking Atorvastatin Calcium 10 MG Tablet TAKE 1 TABLET BY MOUTH EVERY DAY Oral , Taking Allopurinol 100 MG Tablet Oral Objective: * Vitals:?Ht: 5 ft 4 in, Wt:15 5, BMI:26.6, Ht-cm: 162.56 cm, Wt-k.31 kg. Assessment: Plan: * Treatment: * Images: * The named appointment provid er may or may not be the originator of this progress note, and it is not deemed complete until electronically signed by the appointment provider. Sign off status: Pending * Provider:?Jessa Mendosa DPM Date:?2023 Generated for Chriss steward/King/Jenny on:?08/08/2024 03:53 PM EDT
--- OUTSIDE RECORDS SUMMARY | 2024-08-08 15:53 | XMS_ITS ---
Author Organization [facility] [place] Address [address] [facility] [place] [address] Care Team Providers Care Title Checker Name Role Phone Louie Miller MD Primary Care Provider Unavaila ble Black, Jessa Unavailable [phone] REASON FOR VISIT CL[facility] Entered Encounters Encounter Location Date Provider Diagnosis [facility] [place] [address] [facility] [place] [address] 06/27/2023 Jessa Black Plan Of Treatment No Information Progress Notes * Perla ANDERSONDOB:[birth year] (67 yo F)Acc No.[id number]:06/27/2023 Patient:?Perla Anderson :01/06/1956???Age:67 Y???Sex:Female Address:[address] [place] [address] * true * Date:? Generated for Printi bin/King/eTransmitting on:?08/08/2024 03:52 PM EDT
== END 2024-08-08 16:22 | disposition home or self-care (01) ==
LOC: HO.HMCHD 15:19
PROVIDERS: PCP Internal Medicine; Visit Provider Internal Medicine
DX: Z13.228 Encounter for screening for other metabolic disorders (principal); R94.6 Abnormal results of thyroid function studies; E78.5 Hyperlipidemia, unspecified; M25.511 Pain in right shoulder; M25.512 Pain in left shoulder; G89.29 Other chronic pain

== ENCOUNTER → 2024-08-08 15:18 | Outpatient (BNVA) | payer MEDICARE, SELFPAY | PROVIDERS: PCP Internal Medicine; Visit Provider Internal Medicine | DX: R94.6 Abnormal results of thyroid function studies (principal); E78.5 Hyperlipidemia, unspecified; M25.511 Pain in right shoulder; M25.512 Pain in left shoulder; G89.29 Other chronic pain; Z79.899 Other long term (current) drug therapy | CPT/HCPCS: 96127; 99202 ==

== ENCOUNTER 2024-12-16 08:09 | Outpatient (AMB) | payer MEDICARE, SELFPAY ==
--- OUTSIDE RECORDS SUMMARY | 2023-08-21 04:30 | XMS_ITS ---
Author Organization [facility] Address [address] [place] [address] Care Team Providers Care Director Data Name Role Phone Louie Miller MD Primary Care Provider Jessa Lugo [phone] Medications Medication SIG (Take, Route, Frequency, Duration) [...] 08/21/2023 Encounters Encounter Location Date Provider Diagnosis [facility] [address] [facility] [place] [address] 08/21/2023 Jessa Mendosa Plan Of Treatment No Information Progress Notes * Perla ANDERSONDOB:[birth year] (68 yo F)Acc No.[id number]:08/21/2023 Progress Notes Patient: Perla WHITLEY Provider: Omid Mendosa DPM :01/06/1956 A ge:67 Y S ex:Female Date:08/21/2023 Address: [address], [place], [place] Pcp:Louie Miller MD Subjective: * Chief Complaints: [...] enies. C ardiovascular: Pacemaker d enies. M PLANT ATTENDANT d enies. W PW d enies. C [...] Children: yes, 2. Marital status: . 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 * Medications: T aking Propranolol HCl [...] 0 08/21/2023 Generated for Chriss steward/King/Jenny on: 0 12/16/2024 08:44 AM EDT
--- NOTE | 2024-12-16 08:11 | A.OFFPC_ITS ---
Vital Signs 12/16/24 08:16 Height 5 ft 4 in Weight 151 lb BMI 25.9 BP 148/90 H Blood Pressure Location Lt brachial Position Sitting Respiration 18 Pulse 68 Pulse Source Pulse Oximeter Temp 97.9 F Temp Source Temporal Artery Scan Pulse Oximetry (%) 99 Oxygen Delivery Method Room Air Intake Visit Reasons: f/u-croke pt Optical Element Coater Required: No Accompanied by: Self / Same As Patient Allergies No Known Allergies (No Known Allergies*) Allergy (Verified 12/16/24 08:11) Tobacco use date assessed: 08/08/24 Fall risk assessment: No Falls in past year Last assessed Fall Risk: 12/16/24 Dental Screening Dental Screen Date: 08/08/24 Did you have a dental visit in the last 12 months?: Yes HPI HPI Comments History of Present Illness Details The patient is a 69-year-old female presenting with hair thinning, purpura, dizziness, and anxiety. She reports that her hair has been thinning and she has been using topical minoxidil, which she found messy but effective. She is considering switching to oral minoxidil due to application difficulties with the topical form. The patient mentions bruising without significant bleeding following minimal trauma, indicating senile purpura. She has experienced no recent bleeding incidents following minor trauma. She has seen a welfare eligibility worker, who recommended an cfcp-kpp-nqdhibk topical treatment. Orthostatic dizziness is reported at 2 out of 10 in severity, occurring intermittently without specific triggers. It has not affected her daily activities or work. She has attempted to self-assess this symptom without identifying a pattern. Essential hypertension is documented, with blood pressure readings being generally elevated during office visits but not managed with antihypertensives. The patient is advised to monitor her blood pressure at home. The patient experiences anxiety, particularly in light of an upcoming trip to [place], with a reported history of palpitations managed with propranolol once daily at night. She is currently on a statin for hyperlipidemia, with her daughter advising monitoring cholesterol levels, which is pending due to delayed bloodwork. Medical History: - Androgenetic Alopecia - Senile Purpura - Orthostatic Dizziness - Essential Hypertension - Anxiety - Hyperlipidemia - Gout - Nephrolithiasis - History of palpitations Surgical History: - Right shoulder replacement pending Medications: - Minoxidil topical, for Androgenetic Al opecia - Propranolol, for palpitations and situ ational anxiety - Allopurinol, 100 mg, for gout and neph rolithiasis - Atorvastatin, for hyperlipidemia - Albuterol inhaler, as needed for dyspn ea - Potassium citrate, as a supplement Diagnostic Results: - Labs: Elevated uric acid once in 2022 Social: - The patient is highly active with regu lar walking, gardening, lawn mowing, and yard maintenance. - Alcohol use is occasional; she denies smoking. - She is experiencing situational anxiet y regarding travel. [facility] Medical History (Updated 12/16/24 @ 08:36 by Daniele Robles MD) Heart burn Anxiety Purpura Androgenic alopecia Renal calculi Surgical History History of colonoscopy (~01/25/16) Family History Mother No problems noted. Father No problems noted. Social History Housing: House Patient Tobacco Use Status: Never used Tobacco e-Cigarette/Vaping Use: Never Used service: No Current occupational status: employed and retired Current occupation: [employer] Cognitive needs: No Hearing needs: No Vision needs: Yes (reading glasses) Questionnaire Thrive Questionnaire Date Thrive assessed: 08/08/24 AUDIT C Alcohol Use Questionnaire (AUDIT-C) 1. How often do you have a drink containing alcohol?: 2-4 times a month 2. How many drinks containing alcohol do you have on a typical day when you are drinking?: 1 or 2 Total Score: 2 MICAELA-7 AMB Questionnaire MICAELA-7 Date MICAELA - 7 assessed: 08/08/24 Source: Developed by Drs. Demarcus Weinstein, Amarilys Carrington, Geo Yanez and colleagues, with an educational wendy from [employer]. Review of Systems Const Details: - Integumentary: Reports hair thinning, senile purpura - Cardiovascular: Reports orthostatic dizziness; denies easy bleeding - Psychological: Reports anxiety, situational exacerbation - Respiratory: Denies regular use of albuterol inhaler, reports occasional tightness All systems reviewed & are unremarkable except as reviewed in HPI and above Physical exam (Primary Care) Vital Signs: Last Vital Signs Temp 97.9 F 12/16/24 08:16 Pulse 68 12/16/24 08:16 Resp 18 12/16/24 08:16 BP 148/90 H 12/16/24 08:16 Pulse Ox 99 12/16/24 08:16 Oxygen Delivery Method Room Air 12/16/24 08:16 BMI result Body Mass Index 25.9 Tobacco/Smoking Status: Tobacco use Status Tobacco use date assessed 08/08/24 12/16/24 08:19 Patient Tobacco Use Status Never used Tobacco 12/16/24 08:19 e-Cigarette/Vaping Use Never Used 12/16/24 08:19 Thrive Assessment: Date of Thrive Assessment Date Thrive assessed 08/08/24 12/16/24 08:19 Const Other: General: +Alert and oriented, Well nourished, No acute distress. Eye: Pupils are equal, round and reactive to light, Intact accommodation, Ex traocular movements are intact, Normal conjunctiva, Vision unchanged. HENT: Normocephalic, Atraumatic, Tympanic membranes are clear, Normal hearing, Oral mucosa is moist, No pharyngeal erythema, Ear canals patent. Respiratory: Lungs CTA bilaterally, No wheeze, Respirations are non-labored. Cardiovascular: Regular rate, Regular rhythm, S1 auscultated, S2 auscultated, No murmur, Good pulses equal in all extremities, Normal peripheral perfusion, No edema. Gastrointestinal: Soft, Non-tender, Non-distended, Normal bowel sounds, No organomegaly. Musculoskeletal: Normal range of motion, Normal strength, No tenderness, No swelling, No deformity, Normal gait. Integumentary: Warm, Dry, Flanagan, Intact, Noted skin lesion on left arm. Neurologic: Alert, Oriented, Normal sensory, Normal motor function, No focal defects, Cranial Nerves II-XII are grossly intact, Normal deep tendon reflexes. Psychiatric: Cooperative, Appropriate mood & affect, Normal judgment. 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 Code(s): E78.5 - Hyperlipidemia, unspecified Category: Medical Qualifiers: Hyperlipidemia type: unspecified Qualified Code(s): E78.5 - Hyperlipidemia, unspecified (2) Androgenic alopecia: Comment: - Continue topical minoxidil application as effective; consider transitioning to oral formulation if topical application remains impractical and as advised my welfare eligibility worker Code(s): L64.9 - Androgenic alopecia, unspecified Category: Medical (3) Purpura: Comment: - Apply dermatological-recommended qfrq-gjv-lwjifpr topical treatment; monitor for any signs of increased bleeding tendency. Code(s): D69.2 - Other nonthrombocytopenic purpura Category: Medical (4) Gout: Comment: - Continue allopurinol for uric acid management; reevaluate if symptoms reoccur. Code(s): M10.9 - Gout, unspecified Category: Medical Qualifiers: Gout site: unspecified site Gout etiology: unspecified cause Chronici ty: chronic Presence of tophus: without tophus Qualified Code(s): M1A.9XX0 - Chronic gout, unspecified, without tophus (tophi) (5) Bilateral shoulder pain: Comment: - Undergoing Right Shoulder Replacement in March Code(s): M25.511 - Pain in right shoulder; M25.512 - Pain in left shoulder Category: Medical Qualifiers: Chronicity: chronic Qualified Code(s): M25.511 - Pain in right shoulder; M25.512 - Pain in left shoulder; G89.29 - Other chronic pain (6) Anxiety: Comment: - Utilize non-pharmacological methods for anxiety management; continue propranolol as prescribed. Code(s): F41.9 - Anxiety disorder, unspecified Category: Medical (7) Heart burn: Comment: - Noticed recently with the use of vitamin D Supplementation. Advised using supplement with food and also identify other foods causing symptoms. Code(s): R12 - Heartburn Category: Medical (8) Renal calculi: Comment: - Maintain adequate hydration; continue potassium citrate per prior guideline to prevent recurrence. Code(s): N20.0 - Calculus of kidney Category: Medical Plan: Health Maintenance: - Encourage continued physical activity and adequate sun protection. - Bloodwork and screening recommended post-travel for comprehensive evaluation. - Emphasize the importance of home blood pressure tracking. Plan The patient and I discussed the importance of continuing topical minoxidil for alopecia unless the switch to oral is preferred due to the less messy application. I underscored that oral formulations might have systemic effects. We agreed on monitoring blood pressure at home, given elevated office readings. For dizziness and anxiety, I advised continuing dietary vigilance and propranolol once daily, respectively, while avoiding new medications for travel anxiety to prevent dependence. The potential systemic use of anti-anxiety medications was advised against, emphasizing non-pharmacologic relaxation techniques. Comprehensive blood work and screenings are planned post-travel to evaluate lipid and uric acid levels, among other parameters. The patient will proceed with household pressure monitoring for potential hypertension management adjustments. Orders: Orders Hemoglobin A1c Today E78.5 - Hyperlipidemia, unspecified Syphilis Screen Today E78.5 - Hyperlipidemia, unspecified HIV Ab/Ag Today E78.5 - Hyperlipidemia, unspecified Complete Blood Count Auto Diff Today E78.5 - Hyperlipidemia, unspecified Comprehensive Met. Panel Today E78.5 - Hyperlipidemia, unspecified Lipid Panel Today E78.5 - Hyperlipidemia, unspecified TSH reflex Free T4 Today E78.5 - Hyperlipidemia, unspecified Vitamin D 25-OH Total Today E78.5 - Hyperlipidemia, unspecified Hepatitis A,B,C Profile Today E78.5 - Hyperlipidemia, unspecified Patient Instructions: - Continue using minoxidil if it effectively manages alopecia; consider oral if needed. - Apply gaew-reh-ngzaejl topical treatment for purpura as advised by the welfare eligibility worker. - Monitor blood pressure at home routinely. - Maintain a balanced diet, hydration, and regular exercise. - Use non-medicinal methods for travel anxiety; take propranolol as usual. - Complete lab work upon returning from your trip to [place]. - Protect skin from the sun, especially during lengthy outdoor activities.
[2024-12-16 08:16] VITALS: BP 148/90; PULSE 68; RESP 18; TEMP 36.6; O2SAT 99; BMI 25.9
--- OUTSIDE RECORDS SUMMARY | 2024-12-16 08:44 | XMS_ITS | Clinical Summary ---
Author Organization [address] Address [address] [place] [address] Phone Care Team Providers Care Retail Supervisor Name Role Phone Louie Miller MD Primary Care Provider [phone] Social History Tobacco Use Types Packs/Day Years [...] 2006 Zoster Vaccines (1 of 2) 2006 Depression Screening 04/03/2024 Colorectal Cancer Screening: Colonoscopy 05/28/2024 Falls Risk Assessment 05/28/2024 Hepatitis C Screening 05/28/2024 Medicare Annual Wellness Visit 05/28/2024 Osteoporosis Screening (Bone Density Screening) 05/28/2024 Social Influencers of Health Screening 05/28/2024 COVID-19 Vaccine ( - 2023-2 5 season) 2024 Influenza Vaccine (#1) 2024 RSV Immunization Adult Patie nts (1 [...] on patient's age to complete this topic Insurance MEDICARE [facility] Care Teams Retail Supervisor Relationship Specialty Start Date End Date Louie Miller MD [address] [place] [address] Dr Yaw [place] PCP - General Internal Medicine 05/27/24
--- OUTSIDE RECORDS SUMMARY | 2024-12-16 08:44 | XMS_ITS | Patient Health Record ---
Author Organization [facility] Address [address] [place] [address] Care Team Providers Care County Assessor Name Role Phone Demarcus Stokes Unavailable [phone] Reason For Referral No Information Plan Of Treatment No Information
--- OUTSIDE RECORDS SUMMARY | 2024-12-16 08:44 | XMS_ITS | Clinical Summary ---
Author Organization [facility] Address [address] [place] [address] Phone Care Team Providers Care Speedometer Inspector Name Role Phone Pcp, Unknown Primary Care Provider Unavailabl e Social History Tobacco Use Types Packs/Day Years Used Date Smoking Tobacco: Never Assessed Education Answer Date Recorded Are you interested in more education? Not on luis e 04/08/2024 Are you concerned about learning? Not on file 04/08/2024 No 04/08/2024 No 04/08/2024 Digital Access Answer Date Recorded No 04/08/2024 No 04/08/2024 Reliable internet access at home? Not on file 04/08/2024 Device with a working camera? Not on file Comments Unknown Sex and Gender Information Value Date Recorded Sex Assigned at Not on file Legal Sex Female 9:53 PM EDT Gender Identity Not on file Sexual Orientation Not on file Plan of Treatment Upcoming Encounters Date Type Department Care Team (Late st Contact Info) Description 04/02/2025 8:00 AM EST Office Visit [facility] Family Medicine [address] [place] [address] Abelardo Carrillo DO [address], [address] [place] [address] [email or web address] Health Maintenance Due Date Last Done Comments Adult Td,Tdap Booster 1955 LIPID PANEL 1956 DEPRESSION SCREENING 1968 SMOKING Hx and SMOKELESS TOB ACCO SCREENING 1969 HEPATITIS C SCREENING 1974 MAMMOGRAM 1996 COLOGUARD 2001 COLONOSCOPY 2001 COLORECTAL CANCER SCREENING 2001 FIT TEST 2001 FOBT 2001 SIGMOIDOSCOPY 2001 VIRTUAL COLONOSCOPY 2001 PNEUMOCOCCAL VACCINES (50+ y ears) (1 of 1 - PCV) 2006 ZOSTER VACCINES (1 of 2) 2006 OSTEOPOROSIS SCREENING INITI AL (ONE-TIME) 2021 INFLUENZA VACCINE (#1) 2024 COVID-19 VACCINE (1 - 2023-2 5 season) 2024 RSV VACCINE (1 - 1-dose 75+ series) 09/11/2031 HEPATITIS A VACCINES Aged Out No long er eligible based on patient's age to complete this topic HIB VACCINES Aged Out No longer eligi ble based on patient's age to complete this topic MENINGOCOCCAL VACCINES (ACWY) Aged Out No longer eligible based on patient's age to complete this topic MENINGOCOCCAL VACCINES (B) Aged Out N o longer eligible based on patient's age to complete this topic Medical Devices Not on file Insurance MEDICARE PART A & B [place] MEDEX SUPPLEMENT MEDICARE PART A & B [employer] MEDEX SUPPLEMENT MEDICARE PART A & B [place] MED[employer] SUPPLEMENT MEDICARE PART A & B [employer] CROSS MEDEX SUPPLEMENT MEDICARE PART A & B [place] MED[employer] SUPPLEMENT MEDICARE PART A & B [employer] MEDEX SUPPLEMENT Care Teams Speedometer Inspector Relationship Specialty Start Date End Date Pcp, Unknown PCP - General 04/08/24 Additional Source Comments The information contained in this document represents components of the legal health record. It is not the complete legal health record.[facility]
--- OUTSIDE RECORDS SUMMARY | 2024-12-16 08:44 | XMS_ITS | Encounter Summary ---
[facility] Organization [facility] Address [address] [place] [address] Care Team Providers Care Salt Manager Name Role Phone Louie Miller MD Primary Care Provider [phone] Encounter Details Date Type Department Care Team (Late st Contact Info) Description 05/27/2024 Lab Requisition [facility] - Main Lab [address] [place] [id number] Deandra Marroquin PA [address] [place] [address] Calculus of kidney; Hypercalcemia Social History Tobacco [...] LAB CHEMISTRY METHOD 05/27/2024 8:01 PM EST [facility] ([facility] Blood Venous blood specimen / Unknown 05/27/2024 05/27/2024 6:16 PM EST Deandra KESSLER LAB BLOOD ORDERABLES Final Re sult Performing Organization Address City/[facility]/ZIP Co de Phone Number [facility] [address] [place] [address], [place] [phone] * (ABNORMAL) Vitamin D 25 hydroxy (05/27/2024 12:00 AM EST) Vit D, 25-Hydroxy 9.9(L) 30.0 - 80.0 ng/mL LAB CHEMISTRY METHOD 05/27/2024 8:17 PM EST [facility] Blood Venous blood specimen / Unknown 05/27/2024 05/27/2024 6:16 PM EST Deandra KESSLER LAB BLOOD ORDERABLES Final Re sult Performing Organization Address [facility] Co de Phone Number [facility] [address] [place] [address], [place] [phone] documented in this encounter Visit Diagnoses Diagnosis Calculus of kidney Hypercalcemia documented in this encounter Care Teams Salt Manager Relationship Specialty Start Date End Date Louie Miller MD [address] [place] [address] Dr Tid[place] PCP - General Internal Medicine 05/27/24 documented as of this encounter
--- OUTSIDE RECORDS SUMMARY | 2024-12-16 08:44 | XMS_ITS | Patient Health Record ---
Author Organization [facility] Address [address] [place] [address] Care Team Providers Care Bariatric Physician Name Role Phone Louie Miller MD Primary Care Provider Unavaila Jessa Carranza Unavailable [phone] Reason For Referral No Information Medications Medication [...] Start Date Coverage End Date Medicare National [facility] [address] [facility] [place] [address] [id number] Monica Perla Self - patient is the insured Medex Blue Shield [address] [place] [address] [id number] 7 Perla Anderson Self - patient is the insured Medical (General) History Medical History History ICD Code CAD (Cholesterol) Gout Chicken pox Surgical History Surgery Date(Month/Year) myomectomy 1988 09/18/89 08/17/92 thumb joint replacement 2016
== END 2024-12-16 08:43 | disposition home or self-care (01) ==
LOC: HO.HMCHD 08:10
PROVIDERS: PCP Student in an Organized Health Care Education/Training Program; Visit Provider Student in an Organized Health Care Education/Training Program
DX: E78.5 Hyperlipidemia, unspecified (principal); L64.9 Androgenic alopecia, unspecified; D69.2 Other nonthrombocytopenic purpura; M1A.9XX0 Chronic gout, unspecified, without tophus (tophi); M25.511 Pain in right shoulder; M25.512 Pain in left shoulder; G89.29 Other chronic pain; F41.9 Anxiety disorder, unspecified; R12 Heartburn; N20.0 Calculus of kidney

== ENCOUNTER → 2024-12-16 08:09 | Outpatient (BNVA) | payer MEDICARE, SELFPAY | PROVIDERS: PCP Internal Medicine; Visit Provider Student in an Organized Health Care Education/Training Program | DX: E78.5 Hyperlipidemia, unspecified (principal); L64.9 Androgenic alopecia, unspecified; D69.2 Other nonthrombocytopenic purpura; M1A.9XX0 Chronic gout, unspecified, without tophus (tophi); M25.511 Pain in right shoulder; M25.512 Pain in left shoulder; G89.29 Other chronic pain; F41.9 Anxiety disorder, unspecified; R12 Heartburn; N20.0 Calculus of kidney; Z79.899 Other long term (current) drug therapy | CPT/HCPCS: 99212 ==

== ENCOUNTER 2025-01-29 08:25 | Outpatient (REF) | payer MEDICARE, SELFPAY ==
--- OUTSIDE RECORDS SUMMARY | 2023-08-21 04:30 | XMS_ITS ---
Author Organization [facility] Address [address] [place] [address] Care Team Providers Care Acute Care Nurse Name Role Phone Louie Miller MD Primary Care Provider Jessa Lugo [phone] Medications Medication SIG (Take, Route, Frequency, Duration) Notes Start Date End Date Status Allopurinol 100 MG Oral; Duration: 90 Days Active Atorvastatin Calcium 10 MG TAKE 1 TABLET BY MOUTH EVERY DAY Oral; Duration: 90 Days Active Propranolol HCl 20 MG TAKE 1 TABLET BY M OUTH EVERY DAY Oral; Duration: 90 Days Active Social History Tobacco Use: Social History Observation Description Date Details (start date - stop date) Never Smoker NA - NA Tobacco Use/Smoking Question Answer Notes Are you a: nonsmoker Additional Findings: Tobacco Non-User Current no n-smoker Alcohol Screen Question Answer Notes Did you have a drink containing alcohol in the p ast year? Yes Points 0 Interpretation Negative Tobacco use other than smoking: Question Answer Notes Are you an other tobacco user? No Vital Signs Height 5 ft 4 in in 08/21/2023 Weight 155 lbs 08/21/2023 BMI 26.6 kg/m2 08/21/2023 Encounters Encounter Location Date Provider Diagnosis [facility] [place] [address] [facility] [place] [address] 08/21/2023 Jessa Mendosa Plan Of Treatment No Information Progress Notes * Perla ANDERSONDOB:[birth year] (69 yo F)Acc No.[id number]:08/21/2023 Progress Notes Patient: Perla WIHTLEY Provider: Omid Mendosa DPM :01/06/1956 A ge:67 Y S ex:Female Date:08/21/2023 Address: [address], [place], [place] Pcp:Louie Miller MD Subjective: * Chief Complaints: * * ROS: G eneral/Constitutional: Nausea d enies. V omiting d enies. H komal Thirst d enies. L oss appetite d enies. C hills d enies. F atigue d enies.?Fever d enies. N ight Sweats d enies. U nexplained weight loss d enies. U nexplained weight gain d enies. H EENTM: Dentures d enies. D izziness d enies. G lasses/contacts d enies. R etinopathy d enies. B lurred/double vision d enies. T MJ?denies. D ischarge/drainage d enies. I mplants d enies. S ore throat d enies. D ental implants a dmits. H temo of hearing d enies. D ifficulty chewing/swallowing/speaking d enies. N ose bleeds d enies. S ore mouth d enies. ? R espiratory: On Oxygen d enies. P neumonia/pleurisy d enies.?Bronchitis d enies. E mphysema d enies. C oughing d enies. C ough blood?denies. S hortness of breath d enies. W heezing d enies. C ardiovascular: Pacemaker d enies. M FILM LABORATORY TECHNICIAN d enies. W PW d enies. C HF d enies. H eart attack d enies. S eptal defect d enies. R apid beat d enies. C hest pain d enies. A trial Fib. d enies. M urmur/Palpitations a dmits. G astrointestinal: Hemorrhoids d enies. S tomach/Abdominal pain d enies. D ark blood stool d enies. I rritable bowel d enies. C onstipation d enies. D iarrhea d enies. H ematology: Swelling d enies. C lots d enies. V aricose Veins d enies. B ruising d enies. B leeding problem d enies. G enitourinary: Blood urine d enies. F requent/Painfu/urination/bladder control d enies. K idney stones a dmits. I nfection (UTI) d enies. N ephropathy d enies. s ex trans dis (STD) d enies. P rostate d enies. M usculoskeletal: Hammertoes d enies. B unions d enies. B ack Pain d enies. M uscle Cramps/ Resting d enies. M uscle cramps / walking d enies.?Generalized aches and pains d enies. W eakness d enies. I nteg.: Wolf d enies. S cars d enies. C orns/calluses?denies. I ngrown nails a dmits. P ainful nails d enies. O pen Sores d enies. R ashes d enies. N eurologic: Difficulty sleeping d enies. B rain disorder d enies. N umbness d enies. B alance trouble d enies. C onfusion d enies. F ainting/blackouts d enies. T ingling d enies. T remors d enies. * Medical History: C AD (Cholesterol), Gout, Chicken pox. * Surgical History: m yomectomy 1988, 09/18/89, 08/17/92, thumb joint replacement 2015. * Family History: M other: , arthritis, cancer, foot problems, high blood pressure. F ather: , kidney/liver disease, high blood pressure. * Social History: T obacco Use: T obacco Use/Smoking A re you a: n onsmoker A dditional Findings: Tobacco Non-User C urrent non-smoker Tobacco use other than smoking A re you an other tobacco user? N o D rugs/Alcohol: D rugs H ave you used drugs other than those for medical reasons in the past 12 months? N o Alcohol Screen D id you have a drink containing alcohol in the past year? Y es P oints 0 I nterpretation N egative M iscellaneous: C affeine: no. Children: yes, 2. Marital status: . 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 * Medications: T aking Propranolol HCl 20 MG Tablet TAKE 1 TABLET BY MOUTH EVERY DAY Oral , Taking Atorvastatin Calcium 10 MG Tablet TAKE 1 TABLET BY MOUTH EVERY DAY Oral , Taking Allopurinol 100 MG Tablet Oral Objective: * Vitals: H t: 5 ft 4 in, Wt:155, BMI:26.6, Ht-cm: 162.56 cm, Wt-k.31 kg. Assessment: Plan: * Treatment: * Images: * The named appointment provid er may or may not be the originator of this progress note, and it is not deemed complete until electronically signed by the appointment provider. Sign off status: Pending * Provider: Omid Mendosa DPM Date: 0 08/21/2023 Generated for Chriss steward/King/Jenny on: 1 08:58 AM EDT
--- OUTSIDE RECORDS SUMMARY | 2025-01-29 08:58 | XMS_ITS | Patient Health Record ---
Author Organization [facility] Address [address] [place] [address] Care Team Providers Care Shirrer Name Role Phone Demarcus Stokes Unavailable [phone] Reason For Referral No Information Plan Of Treatment No Information
--- OUTSIDE RECORDS SUMMARY | 2025-01-29 08:58 | XMS_ITS | Clinical Summary ---
Author Organization [facility] Address [address] [place] [address] Phone Care Team Providers Care Conventions Assistant Name Role Phone Pcp, Unknown Primary Care [...] Description 04/02/2025 8:00 AM EST Office Visit [facility] Family Medicine [address] [place] [address] Abelardo Carrillo DO [address] [place] [address] [email or web address] Health Maintenance Due Date Last Done Comments [...] VACCINE (#1) 2024 COVID-19 VACCINE (1 - 2024-2 6 season) 2024 RSV VACCINE (1 - 1-dose [...] file Insurance MEDICARE PART A & B [place] [employer] MEDEX SUPPLEMENT MEDICARE PART A & B [employer] MEDEX SUPPLEMENT MEDICARE PART A & B [employer] MEDEX SUPPLEMENT MEDICARE PART A & B [employer] CROSS MEDEX SUPPLEMENT MEDICARE PART A & B [employer] MEDEX SUPPLEMENT MEDICARE PART A & B [employer] MEDEX SUPPLEMENT Care Teams Conventions Assistant Relationship Specialty Start Date End Date Pcp, Unknown PCP - General 04/08/24 Additional Source Comments The information contained in this document represents components of the legal health record. It is not the complete legal health record.[facility]
--- OUTSIDE RECORDS SUMMARY | 2025-01-29 08:58 | XMS_ITS | Patient Health Record ---
Author Organization [facility] Address [address] [place] [address] Care Team Providers Care Welder Machine Operator Name Role Phone Louie Miller MD Primary Care Provider Unavaila Jessa Carranza Unavailable [phone] Reason For Referral No Information Medications Medication [...] Start Date Coverage End Date Medicare [facility] [address] [place] [address] [phone] [id number] Monica Perla Self - patient is the insured Medex Blue Shield [address] [place] [address] [id number] 7 Perla Anderson Self - patient is the insured Medical (General) History Medical History History ICD Code CAD (Cholesterol) Gout Chicken pox Surgical History Surgery Date(Month/Year) myomectomy 1988 09/18/89 08/17/92 thumb joint replacement 2016
--- OUTSIDE RECORDS SUMMARY | 2025-01-29 08:58 | XMS_ITS | Encounter Summary ---
Author Organization [facility] Address [address] [place] [address] Care Team Providers Care Cardiology Clinical Nurse Specialist Name Role Phone Louie Miller MD Primary Care Provider Encounter Details Date Type Department Care Team (Late st Contact Info) Description 05/27/2024 Lab Requisition [facility] - Main Lab [address] [place] [phone] Deandra Marroquin PA [address] [place] [address] Calculus of kidney; Hypercalcemia Social History Tobacco [...] CHEMISTRY METHOD 05/27/2024 8:01 PM EST [facility] ([facility]) [facility] Blood Venous blood specimen / Unknown 05/27/2024 05/27/2024 6:16 PM EST Deandra KESSLER LAB BLOOD ORDERABLES Final Re sult Performing Organization Address City/[facility]/ZIP Co de Phone Number [facility] [address] [place] [address], [place] [phone] * (ABNORMAL) Vitamin D 25 hydroxy (05/27/2024 12:00 AM EST) Vit D, 25-Hydroxy 9.9(L) 30.0 - 80.0 ng/mL LAB CHEMISTRY METHOD 05/27/2024 8:17 PM EST [facility] Blood Venous blood specimen / Unknown 05/27/2024 05/27/2024 6:16 PM EST Deandra KESSLER LAB BLOOD ORDERABLES Final Re sult Performing Organization Address [facility] Co de Phone Number [facility] [address] [place] [address], [place] [phone] documented in this encounter Visit Diagnoses Diagnosis Calculus of kidney Hypercalcemia documented in this encounter Care Teams Cardiology Clinical Nurse Specialist Relationship Specialty Start Date End Date Louie Miller MD [address] [place] [address] Dr Tidwell [place] PCP - General Internal Medicine 05/27/24 documented as of this encounter
--- OUTSIDE RECORDS SUMMARY | 2025-01-29 08:58 | XMS_ITS | Clinical Summary ---
Author Organization [address] Address [address] [place] [address] Phone Care Team Providers Care Cosmetic Sales Name Role Phone Louie Miller MD Primary Care Provider [phone] Social History Tobacco Use Types Packs/Day Years Used Date Smoking Tobacco: Never Assessed Comments Unknown Sex and Gender Information Value Date Recorded Sex Assigned at Not on file Legal Sex Female 11:08 PM EST Gender Identity Not on file Sexual Orientation Not on file Plan of Treatment Health Maintenance Due Date Last Done Comments Breast Cancer Screening 1955 Colorectal Cancer Screening: Colonoscopy 1955 DTaP,Tdap,and Td Vaccines (1 - Tdap) 09/11/1975 Pneumococcal Vaccine: 50+ Ye ars (1 of 1 - PCV) 2006 Zoster Vaccines (1 of 2) 2006 Depression Screening 04/03/2024 Falls Risk Assessment 05/28/2024 Hepatitis C Screening [...] age to complete this topic Insurance MEDICARE [facility] Care Teams Cosmetic Sales Relationship Specialty Start Date End Date Louie Miller MD [address] [place] [address] Dr Yaw [place] PCP - General Internal Medicine 05/27/24
[2025-01-29 09:57] LABS: MANUAL DIFF FLAG NO
[2025-01-29 10:07] LABS: Hematocrit 45.8 % (37.0-47.0); Hemoglobin 14.5 g/dl (12.0-16.0); Imm Gran Abs Auto 0.02 X10*3/uL (0.00-0.03); Imm Gran Pct Auto 0.2 % (0.0-0.4); Lymphocytes Absolute Auto 2.3 X10*3/uL (1.2-4.9); Mean Corpuscular HGB Conc 31.7 g/dl (31.0-35.0); Mean Corpuscular Hemoglobin 29.7 pg (27.0-33.0); Mean Corpuscular Volume 93.9 fL (80.0-98.0); NRBC Abs Auto 0.000 X10*3/uL (0.0-0.012); NRBC Pct Auto 0.0 /100WBC (0.0-0.2); Platelet Count 340 X10*3/uL (160-400); Red Blood Count 4.88 X10*6/uL (4.20-5.50); White Blood Count 8.4 X10*3/uL (4.8-10.8)
[2025-01-29 10:51] LABS: HBS Num1 0.72 mIU/mL (0-7.99); HBc Num1 0.05 S/CO (0.00-0.79); HBsAGNum1 0.33 S/CO (0.00-0.99); HIV Num 1 0.06 S/CO (0.00-0.99); Hepatitis A Antibody IgM 0.14 Index (0-0.79); Hepatitis B Surface Antigen Negative (Negative); Syphilis Screen Nonreactive (Nonreactive); ~HepC Num1 0.06 S/CO (0.00-0.79); ~Hepatitis A Antibody IgM Nonreactive (Nonreactive); ~Hepatitis B Surface Antibody NONREACTIVE (Nonreactive); ~Hepatitis C Antibody Nonreactive (Nonreactive)
[2025-01-29 10:54] LABS: Alanine Aminotransferase 22 U/L (0-31); Albumin Level 4.1 g/dL (3.5-5.0); Alkaline Phosphatase 78 U/L (39-117); Anion Gap 11 (12-20); Aspartate Amino Transferase 25 U/L (5-31); Blood Urea Nitrogen 14 mg/dL (9-16); Calcium 9.1 mg/dL (8.4-10.2); Carbon Dioxide 27 mmol/L (22-29); Chloride 108 mmol/L (96-108); Cholesterol 186 mg/dL (<200); Estimated Glomerular Filt Rate > 60; HDL Cholesterol 62 mg/dL (>40); Potassium 4.0 mmol/L (3.3-5.1); Sodium 142 mmol/L (135-145); Total Protein 6.7 g/dL (6.5-8.0); Triglycerides 140 mg/dL (<150)
== END 2025-01-29 08:26 | disposition home or self-care (01) ==
LOC: HO.HMGCLDS 08:25
PROVIDERS: PCP Student in an Organized Health Care Education/Training Program; Visit Provider Student in an Organized Health Care Education/Training Program
DX: Z11.4 Encounter for screening for human immunodeficiency virus [HIV] (principal); Z13.1 Encounter for screening for diabetes mellitus; Z13.21 Encounter for screening for nutritional disorder; E78.5 Hyperlipidemia, unspecified
CPT/HCPCS: 36415; 80053; 80061; 82306; 83036; 84443; 85025; 86704; 86706; 86709; 86780; 86803; 87340; 87389

== ENCOUNTER 2025-03-13 09:55 | Outpatient (AMB) | payer MEDICARE, SELFPAY ==
--- NOTE | 2025-03-13 09:56 | MHC.PC.OV ---
Vital Signs 03/13/25 10:00 Weight 151 lb BP 134/84 Blood Pressure Location Lt brachial Position Sitting Respiration 18 Pulse 86 Pulse Source Pulse Oximeter Temp 97.6 F Temp Source Temporal Artery Scan Pulse Oximetry (%) 98 Oxygen Delivery Method Room Air Intake Visit Reasons: Same Day Sick Appt / BM Neurology Technician Required: No Accompanied by: Self / Same As Patient Allergies No Known Allergies (No Known Allergies*) Allergy (Verified 03/13/25 09:57) Tobacco use date assessed: 08/08/24 Fall risk assessment: No Falls in past year Last assessed Fall Risk: 03/13/25 Dental Screening Dental Screen Date: 08/08/24 HPI HPI Comments History of Present Illness Details History of Present Illness The patient is a 69 year old female presenting with diarrhea. She was hospitalized on February 12 and came home on the , and for at least a week after, she experienced yellowish-brown, foul-smelling stools. She reports a recent loss of appetite, though she was eating well after coming home from the hospital. Initially, she had been having 1-2 bowel movements per day, which were a mix of liquid and solid, but last night she had two bowel movements and one this morning, associated with overall cramping and discomfort. She has had only one normal bowel movement in the past few weeks. She also reports feeling nauseous last night and has experienced chills a couple of times. 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 She also has a history of gout, hypercholesterolemia, anxiety, and palpitations. Recent bloodwork from January was reviewed, showing normal thyroid function, great vitamin D levels, borderline cholesterol, and a non-diabetic HbA1c of 5.5. [place]. The patient reports walking two miles yesterday. She reports good hydration and yogurt is her main source of dairy. Medical History: - Gout - Hypercholesterolemia - Anxiety - Palpitations - Hospitalization on February 12 Surgical History: - Complete reverse shoulder replacement with rotator cuff repair. Medications: - Allopurinol 100 mg for gout - Albuterol inhaler as needed - Atorvastatin 10 mg for cholesterol - Propranolol for anxiety and palpitations Diagnostic Results: - Lab results from January: Thyroid was normal, vitamin D levels were great, cholesterol was borderline, and A1c was 5.5. Social History - Exercise: Reports walking two miles yesterday. - Diet: Reports being cautious with her diet and states yogurt is her biggest source of dairy. - Travel: Was out of the country in mid-January. Health Maintenance - The patient is advised to maintain good hydration. - Blood work for CBC is ordered to check for dehydration and infection. - Stool studies are ordered to test for pathogens. Patient was informed and verbally consented to the use of an ambient scribe for clinic note documentation during this visit. Vital signs reviewed. Comprehensive history, review of systems, and physical exam completed. Medications, allergies, and problem list reviewed and updated. Counseling provided on nutrition, regular exercise, sleep hygiene, and moderation of alcohol use. Discussed age-appropriate screenings (mammogram, colonoscopy, Pap, bone density) and immunizations (flu, COVID, shingles, Tdap). Screened for depression, fall risk, and home safety; no current concerns. Discussed stress management, dental and vision care, and importance of ongoing preventive follow-up. Routine labs ordered for metabolic and lipid screening. Patient educated on healthy lifestyle and agrees with the plan. [facility] Medical History (Updated 03/13/25 @ 10:25 by Daniele Robles MD) Diarrhea Heart burn Anxiety Purpura Androgenic alopecia Renal calculi Surgical History History of colonoscopy (~01/25/16) Family History Mother No problems noted. Father No problems noted. Social History Housing: House Patient Tobacco Use Status: Never used Tobacco e-Cigarette/Vaping Use: Never Used service: No Current occupational status: employed and retired Current occupation: [employer] Cognitive needs: No Hearing needs: No Vision needs: Yes (reading glasses) Questionnaire Thrive Questionnaire Date Thrive assessed: 08/08/24 MICAELA-7 AMB Questionnaire MICAELA-7 Date MICAELA - 7 assessed: 08/08/24 Source: Developed by Drs. Demarcus Weinstein, Amarilys Carrington, Geo Yanez and colleagues, with an educational wendy from [employer]. Review of Systems Narrative Review of Systems - Constitutional: Reports chills and decreased appetite. Denies known sick contacts. - Gastrointestinal: Reports yellowish-brown, foul-smelling, soupy stools, cramping, and nausea. Denies abdominal pain. All systems reviewed & are unremarkable except as reviewed in HPI and above Physical exam (Primary Care) Vital Signs: Last Vital Signs Temp 97.6 F 03/13/25 10:00 Pulse 86 03/13/25 10:00 Resp 18 03/13/25 10:00 BP 134/84 03/13/25 10:00 Pulse Ox 98 03/13/25 10:00 Oxygen Delivery Method Room Air 03/13/25 10:00 Tobacco/Smoking Status: Tobacco use Status Tobacco use date assessed 08/08/24 03/13/25 09:59 Patient Tobacco Use Status Never used Tobacco 03/13/25 09:59 e-Cigarette/Vaping Use Never Used 03/13/25 09:59 Thrive Assessment: Date of Thrive Assessment Date Thrive assessed 08/08/24 03/13/25 09:59 Narrative Physical Exam General: +Alert and oriented, Well nourished, No acute distress. Eye: Pupils are equal, round and reactive to light, Intact accommodation, Extraocular movements are intact, Normal conjunctiva, Vision unchanged. HENT: Normocephalic, Atraumatic, Tympanic membranes are clear, Normal hearing, Oral mucosa is moist, No pharyngeal erythema, Ear canals patent. Respiratory: Lungs CTA bilaterally, No wheeze, Respirations are non-labored. Cardiovascular: Regular rate, Regular rhythm, S1 auscultated, S2 auscultated, No murmur, Good pulses equal in all extremities, Normal peripheral perfusion, No edema. Gastrointestinal: Soft, Non-tender, Non-distended, Normal bowel sounds, No organomegaly. Reports yellowish brown foul-smelling stools, occasional cramping, and discomfort. No appetite recently. Musculoskeletal: Normal range of motion, Normal strength, No tenderness, No swelling, No deformity, Normal gait. Integumentary: Warm, Dry, Benjamin Perez, Intact. Neurologic: Alert, Oriented, Normal sensory, Normal motor function, No focal defects, Cranial Nerves II-XII are grossly intact, Normal deep tendon reflexes. Psychiatric: Cooperative, Appropriate mood & affect, Normal judgment. Reports feeling stressed but denies usual stress manifestations. Coding Level of Care Code Est Pt Level 4 (92709) Add On Problem Visit Only Diagnoses Diarrhea, unspecified type R19.7 Diarrhea type: unspecified type Hyperlipidemia, unspecified hyperlipidemia type E78.5 Hyperlipidemia type: unspecified Chronic gout without tophus, unspecified cause, unspecified site M1A.[id number] Gout site: unspecified site Gout etiology: unspecified cause Chronicity: chronic Presence of tophus: without tophus Assessment & Plan Assessment & Plan (1) Diarrhea: Comment: - The patient presents with foul-smelling, yellowish-brown stools, abdominal cramping, nausea, and chills. - The differential diagnosis includes an infectious cause, which is more likely given the foul smell, versus a stress-related etiology. - C. diff is unlikely given the frequency of bowel movements is not 8-10 times per day and the patient is not acutely ill. - The plan is to obtain a stool sample for pathogen testing to rule out an infectious cause before considering anti-diarrheal medication like Imodium, as it could worsen an infection. - Bloodwork, including a CBC, will be checked to assess for dehydration and leukocytosis. - Empiric treatment with Ciprofloxacin 500 mg twice daily for three days will be initiated due to the upcoming weekend, with instructions to provide the stool sample before starting the antibiotic. Code(s): R19.7 - Diarrhea, unspecified Category: Medical Qualifiers: Diarrhea type: unspecified type Qualified Code(s): R19.7 - Diarrhea, unspecified (2) Hyperlipidemia: Comment: - Stable continue on atorvastatin 10mg QHS Code(s): E78.5 - Hyperlipidemia, unspecified Category: Medical Qualifiers: Hyperlipidemia type: unspecified Qualified Code(s): E78.5 - Hyperlipidemia, unspecified (3) Gout: Comment: - Continue allopurinol for uric acid management; reevaluate if symptoms reoccur. Code(s): M10.9 - Gout, unspecified Category: Medical Qualifiers: Gout site: unspecified site Gout etiology: unspecified cause Chronicity: chronic Presence of tophus: without tophus Qualified Code(s): M1A.9XX0 - Chronic gout, unspecified, without tophus (tophi) Plan: Health Maintenance: - The patient is advised to maintain good hydration. - Blood work for CBC is ordered to check for dehydration and infection. - Stool studies are ordered to test for pathogens. Patient was informed and verbally consented to the use of an ambient scribe for clinic note documentation during this visit. Plan I discussed with the patient that her diarrhea could be stress-related, but an infectious cause is also possible, especially given the foul smell. I explained that we need to rule out an infection before treating with an anti-diarrheal like Imodium, as it could worsen an infection. I informed her that C. diff is unlikely because her symptoms are not severe enough, as C. diff would typically cause 8-10 very frequent, watery bowel movements and make her feel sick enough to be hospitalized. I have ordered stool studies and bloodwork to investigate further. Due to the approaching weekend, I have also prescribed a course of Ciprofloxacin as an empiric treatment but instructed her to provide the stool sample before starting the medication. I will call her with the results, even if they come in over the weekend. Orders: Orders GI Panel Today R19.7 - Diarrhea, unspecified Cyclospora & Isospora Stool Today R19.7 - Diarrhea, unspecified Leukocytes Stool Qualitative Today R19.7 - Diarrhea, unspecified Giardia Ag Stool EIA Today R19.7 - Diarrhea, unspecified CDiff Gene PCR Today R19.7 - Diarrhea, unspecified Medications: New ciprofloxacin HCl 500 mg PO BID 6 tabs 0RF 3 days Patient Instructions: - Go to the lab across the [place] to get containers for a stool sample and to have your blood drawn. - You must provide the stool sample before you start taking the new antibiotic. - I have prescribed Ciprofloxacin 500 mg. Take one pill twice a day for three days. - Make sure you continue to drink plenty of fluids to stay hydrated. - I will call you with your test results, even if it is over the weekend. - Continue taking your current medications as prescribed.
[2025-03-13 10:00] VITALS: BP 134/84; PULSE 86; RESP 18; TEMP 36.4; O2SAT 98
== END 2025-03-13 10:25 | disposition home or self-care (01) ==
LOC: HO.HMCHD 09:55
PROVIDERS: PCP Student in an Organized Health Care Education/Training Program; Visit Provider Student in an Organized Health Care Education/Training Program
DX: R19.7 Diarrhea, unspecified (principal); E78.5 Hyperlipidemia, unspecified; M1A.9XX0 Chronic gout, unspecified, without tophus (tophi)

== ENCOUNTER 2025-03-13 09:55 | Outpatient (REF) | payer MEDICARE, SELFPAY ==
[2025-03-13 11:21] LABS: MANUAL DIFF FLAG NO
[2025-03-13 11:45] LABS: Hematocrit 42.0 % (37.0-47.0); Hemoglobin 13.4 g/dl (12.0-16.0); Imm Gran Abs Auto 0.02 X10*3/uL (0.00-0.03); Imm Gran Pct Auto 0.3 % (0.0-0.4); Lymphocytes Absolute Auto 1.8 X10*3/uL (1.2-4.9); Mean Corpuscular HGB Conc 31.9 g/dl (31.0-35.0); Mean Corpuscular Hemoglobin 29.6 pg (27.0-33.0); Mean Corpuscular Volume 92.7 fL (80.0-98.0); NRBC Abs Auto 0.000 X10*3/uL (0.0-0.012); NRBC Pct Auto 0.0 /100WBC (0.0-0.2); Platelet Count 386 X10*3/uL (160-400); Red Blood Count 4.53 X10*6/uL (4.20-5.50); White Blood Count 7.5 X10*3/uL (4.8-10.8)
[2025-03-13 12:07] LABS: Anion Gap 10 (12-20); Blood Urea Nitrogen 10 mg/dL (9-16); Calcium 9.3 mg/dL (8.4-10.2); Carbon Dioxide 27 mmol/L (22-29); Chloride 107 mmol/L (96-108); Estimated Glomerular Filt Rate > 60; Potassium 3.4 mmol/L (3.3-5.1); Sodium 141 mmol/L (135-145)
== END 2025-03-13 09:56 | disposition home or self-care (01) ==
LOC: HO.LAB 09:55
PROVIDERS: PCP Student in an Organized Health Care Education/Training Program; Visit Provider Student in an Organized Health Care Education/Training Program
DX: R19.7 Diarrhea, unspecified (principal); E78.5 Hyperlipidemia, unspecified; M1A.9XX0 Chronic gout, unspecified, without tophus (tophi)
CPT/HCPCS: 36415; 80048; 85025; 99212

== ENCOUNTER 2025-03-15 07:19 | Outpatient (REF) | payer MEDICARE, SELFPAY ==
--- OUTSIDE RECORDS SUMMARY | 2025-03-15 09:51 | XMS_ITS | Patient Health Record ---
Author Organization [facility] Address [address] [place] [address] Care Team Providers Care Geophysical Computer Name Role Phone Demarcus Stokes Unavailable [phone] Reason For Referral No Information Plan Of Treatment No Information
--- OUTSIDE RECORDS SUMMARY | 2025-03-15 09:51 | XMS_ITS | Encounter Summary ---
Author Organization [facility] Address [address] [place] [address] Care Team Providers Care Pathology Technologist Name Role Phone Louie Miller MD Primary Care Provider [phone] Encounter Details Date Type Department Care Team (Late st Contact Info) Description 05/27/2024 Lab Requisition [facility] - Main Lab [address] [place] [phone] Deandra Marroquin PA [address] [place] [address] Calculus of kidney; Hypercalcemia Social History Tobacco [...] LAB CHEMISTRY METHOD 05/27/2024 8:01 PM EST [facility] Blood Venous blood specimen / Unknown 05/27/2024 05/27/2024 6:16 PM EST Deandra KESSLER LAB BLOOD ORDERABLES Final Re sult Performing Organization Address City/[facility]/ZIP Co de Phone Number [facility] [address] [place] [address], [place] [phone] * (ABNORMAL) Vitamin D 25 hydroxy (05/27/2024 12:00 AM EST) Vit D, 25-Hydroxy 9.9(L) 30.0 - 80.0 ng/mL LAB CHEMISTRY METHOD 05/27/2024 8:17 PM EST [facility] Blood Venous blood specimen / Unknown 05/27/2024 05/27/2024 6:16 PM EST Deandra KESSLER LAB BLOOD ORDERABLES Final Re sult Performing Organization Address [facility] Co de Phone Number [facility] [address] [place] [address], [place] [phone] documented in this encounter Visit Diagnoses Diagnosis Calculus of kidney Hypercalcemia documented in this encounter Care Teams Pathology Technologist Relationship Specialty Start Date End Date Louie Miller MD [address] [place] [address] Dr Tidwell [place] PCP - General Internal Medicine 05/27/24 documented as of this encounter
--- OUTSIDE RECORDS SUMMARY | 2025-03-15 09:51 | XMS_ITS | Clinical Summary ---
Author Organization [facility] Address [address] [place] [address] Phone Care Team Providers Care Radiology Therapist Name Role Phone Pcp, Unknown Primary Care [...] Description 04/02/2025 8:00 AM EST Office Visit [facility] [address] [place] [address] Abelardo Carrillo DO [address], [address] [place] [address] Health Maintenance Due Date Last Done Comments [...] file Insurance MEDICARE PART A & B [employer] MEDEX SUPPLEMENT MEDICARE PART A & B Member Subscriber Plan / Payer (Ef fective 2021-Present) Name:Perla Anderson Member ID:[id number] Relation to Subscriber:Self Name:Perla Anderson Subscriber ID:[id number] Payer ID:[id number] Group ID:Not on file Type:Medicare Address: [employer] [address] [place] [id number] [employer] MEDEX SUPPLEMENT MEDICARE PART A & B Member Subscriber Plan / Payer (Ef fective 2021-Present) Name:Perla Anderson Member ID:[id number] Relation to Subscriber:Self Name:Perla Anderson Subscriber ID:[id number] Payer ID:[id number] Group ID:Not on file Type:Medicare Address: [employer] [address] [place] [phone] [employer] MEDEX SUPPLEMENT MEDICARE PART A & B [employer] MEDEX SUPPLEMENT MEDICARE PART A & B [employer] MEDEX SUPPLEMENT MEDICARE PART A & B [employer] MEDEX SUPPLEMENT Care Teams Radiology Therapist Relationship Specialty Start Date End Date Pcp, Unknown PCP - General 04/08/24 Additional Source Comments The information contained in this document represents components of the legal health record. It is not the complete legal health record.[facility]
--- OUTSIDE RECORDS SUMMARY | 2025-03-15 09:51 | XMS_ITS | Clinical Summary ---
Author Organization [address] Address [address] [place] [address] Phone Care Team Providers Care Crop Farm Helper Name Role Phone Louie Miller MD Primary Care Provider [phone] Social History Tobacco Use Types Packs/Day Years [...] Influencers of Health Screening 05/28/2024 COVID-19 Vaccine (1 - 2024-2 6 season) 2024 Influenza Vaccine (#1) 2024 RSV [...] age to complete this topic Insurance MEDICARE [facility] Care Teams Crop Farm Helper Relationship Specialty Start Date End Date Louie Miller MD [address] [place] [address] Dr Yaw [place] PCP - General Internal Medicine 05/27/24
[2025-03-15 13:00] LABS: Leukocytes Stool Qualitative FEW: < 2/OIF (NEGATIVE)
[2025-03-15 14:04] LABS: CDiff Gene PCR NEGATIVE (Negative)
[2025-03-15 14:55] LABS: E. coli EAEC Not Detected (Not Detect.); E. coli EPEC Not Detected (Not Detect.); E. coli ETEC Not Detected (Not Detect.); E. coli STEC Not Detected (Not Detect.); Shigella sp./EIEC Not Detected (Not Detect.)
== END 2025-03-15 07:20 | disposition home or self-care (01) ==
LOC: HO.HMGCLNP 07:19
PROVIDERS: PCP Student in an Organized Health Care Education/Training Program; Visit Provider Student in an Organized Health Care Education/Training Program
DX: R19.7 Diarrhea, unspecified (principal)
CPT/HCPCS: 87015; 87207; 87329; 87493; 87507; 89055

== ENCOUNTER 2025-04-02 17:58 | Emergency (ER) | payer MEDICARE, SELFPAY ==
--- NOTE | ~2025-04-02 | US_ITS ---
CLINICAL HISTORY: LUE swelling erythema Left upper extremity deep venous ultrasound Comparison: None Technique: Real time sonographic imaging, including color-flow imaging and spectral analysis, was performed by the exercise equipment specialist. Multiple enrollment representative static images were saved for review. Findings: Accessible venous segments of the upper extremity are fully compressible with normal Doppler flow throughout. Impression: 1. No evidence of upper extremity deep venous thrombosis. This document has been electronically signed by: Alonso Santana MD on 04/02/2025 19:22:57
[2025-04-02 18:12] VITALS: BP 186/86; PULSE 89; RESP 18; TEMP 36.4; O2SAT 97; BMI 26.9
--- NOTE | 2025-04-02 18:12 | ED.UPPEXIN ---
HPI - Extremity Injury (Upper) General Chief Complaint: Extremity Problem Stated Complaint: R.o bloodclot in left arm Time Seen by Provider: 04/02/25 19:29 Source: patient, family, RN notes reviewed and old records reviewed Mode of arrival: ambulatory History of Present Illness ED Provider: Krysten Cortes PA-C HPI narrative: 69-year-old female with a past medical history anxiety, renal calculi, right shoulder surgery at [facility] on 02/12/2025, presenting to the ED complaining of left upper extremity/forearm swelling, erythema/discoloration since surgery - worsening after many puncture on 03/20. Admits IV was placed to left upper extremity for surgery. Denies anticoagulation use, prior blood clots, SOB, CP, fever, numbness/tingling Related Data Home Medications ?Medication ?Instructions ?Recorded ?Confirmed albuterol 90 mcg/actuation aerosol mcg inhalation 08/08/24 03/13/25 inhaler atorvastatin 10 mg tablet 10 mg PO DAILY 08/08/24 03/13/25 estradiol 0.01% (0.1 mg/gram) vaginal 08/08/24 03/13/25 vaginal cream krill oil 500 mg capsule mg PO 08/08/24 03/13/25 lactobacillus combination no.9 4 4,000 mmu cells PO DAILY 08/08/24 03/13/25 billion cell capsule (Adult 50 Plus Probiotic) multivitamin with minerals-folic tab PO 08/08/24 03/13/25 acid 0.4 mg tablet Previous Rx's ?Medication ?Instructions ?Recorded allopurinol 100 mg tablet 100 mg PO DAILY #90 tabs 11/25/24 propranolol 20 mg tablet 20 mg PO DAILY #90 tabs 02/21/25 ciprofloxacin HCl 500 mg tablet 500 mg PO BID 3 days #6 tabs 03/13/25 cephalexin 500 mg capsule 500 mg PO QID 7 days #28 caps 04/02/25 naproxen 500 mg tablet 500 mg PO BID PRN pain 10 days #20 04/02/25 tabs Allergies Allergy/AdvReac Type Severity Reaction Status Date / Time No Known Allergies (No Known Allergy Verified 04/02/25 18:16 Allergies*) Review of Systems Review of Systems: Yes all other systems are reviewed and are negative Constitutional: Constitutional: Reports as per HPI [facility] Past Medical History Attestation statement: The following information was validated with the patient. Source: old records reviewed Medical History Diarrhea Heart burn Anxiety Purpura Androgenic alopecia Renal calculi Surgical History History of colonoscopy (~01/25/16) Family History Family History Mother No problems noted. Father No problems noted. Social History Social History Housing: House Patient Tobacco Use Status: Never used Tobacco e-Cigarette/Vaping Use: Never Used Advance Directives: Yes Advance Directives Information Provided: No Advance Directives on File: No service: No Current occupational status: employed and retired Current occupation: [employer] Cognitive needs: No Hearing needs: No Vision needs: Yes (reading glasses) Physical Exam Vital Signs: Vital Signs: Last Vital Signs Temp 97.5 F 04/02/25 18:12 Pulse 89 04/02/25 18:12 Resp 18 04/02/25 18:12 BP 186/86 H 04/02/25 18:12 Pulse Ox 97 04/02/25 18:12 O2 Del Method Room Air 04/02/25 18:12 BMI result Body Mass Index 26.9 Const: General: cooperative, healthy appearing and no acute distress Orientation/consciousness: patient oriented x3 Limitations: no limitations HEENT: Head: Yes normal to inspection and Yes atraumatic Ears: hearing grossly normal bilaterally General nose exam: Normal external nose present Face and sinus: Yes normal facial exam Eyes: General: appearance normal, both eyes and all related structures EOM: EOMs intact bilaterally Neck: Neck: Yes normal visual inspection and Yes no meningeal signs Resp: Effort & Inspection: normal respiratory effort and no respiratory distress Cardio: Rate: regular rate Neuro: General: patient oriented x3, tone normal and no meningeal signs Cranial nerves: Yes CN's II-XII intact bilaterally Gait exam (Neuro): Normal gait present Extrem: Other: Left distal forearm with mild swelling, ecchymosis/discoloration and erythema with warmth. Nontender to palpation. NV intact. Erythema not circumferential. No lymphangitis. No crepitus Course Course Course Narrative: This is a Rapid Medical Exam performed in triage by Krysten Cortes PA-C. Full HPI, ROS and PE to be performed by primary ED provider. 69 yo F w/pmhx R shoulder surgery 02/12/25 at [facility] presenting to the ED c/o LUE erythema / swelling x since surgery - worsening after venipunture on 03/20-. Admits IV was placed to LUE. denies SOB, AC use PE: +erythema & warmth to LUE w/mild swelling. NV intact Plan: US, Labs 7:37 PM 04/02/2025 (Krysten Cortes PA-C): Labs reassuring US venous duplex UE LT Impression: 1. No evidence of upper extremity deep venous thrombosis. > on re-evaluation when discussing results area no longer erythematous/warm - patient admits to using heat pack prior to ED arrival. Area is still mildly discolored > with shared decision-making will treat patient for superficial thrombophlebitis and possible early cellulitis with NSAIDs and p.o. antibiotics Results discussed with patient including worrisome signs and symptoms and strict return precautions, and when to return to the emergency department. They verbalized understanding and feel safe for discharge at this time. Medical Decision Making Medical Decision Making MDM Narrative: 69-year-old female with a past medical history anxiety, renal calculi, right shoulder surgery at [facility] on 02/12/2025, presenting to the ED complaining of left upper extremity/forearm swelling, erythema/discoloration since surgery - worsening after many puncture on 03/20. On exam vital signs stable, NAD, nontoxic appearing, physical exam as noted above. Concern for superficial thrombophlebitis vs DVT vs early cellulitis. Lower suspicion for PE, compartment syndrome Plan: Labs, ultrasound Please refer to course for remaining clinical decision making, interpretation of labs/imaging results, and discussions with consultants and/or family members. Differential Diagnosis Differential Diagnoses: The differential diagnosis associated with the presentation includes As above Admission/Observation Consideration of admission/observation: Escalation of care including admission/observation considered Lab Data [facility] Lab Attestation statement: I reviewed the patient's lab results. 04/02/25 18:24 04/02/25 18:24 Labs: Lab Results 04/02/25 Range/Units 18:24 WBC 8.4 (4.8-10.8) X10*3/uL RBC 4.70 (4.20-5.50) X10*6/uL Hgb 13.9 (12.0-16.0) g/dl Hct 42.4 (37.0-47.0) % MCV 90.2 (80.0-98.0) fL MCH 29.6 (27.0-33.0) pg MCHC 32.8 (31.0-35.0) g/dl RDW 12.4 (11.0-16.0) % Plt Count 359 (160-400) X10*3/uL MPV 9.0 L (9.4-12.3) fL Immature Gran % (Auto) 0.1 (0.0-0.4) % Neut % (Auto) 58.3 (45-73) % Lymph % (Auto) 31.7 (20-40) % Wirt % (Auto) 6.4 (2-11) % Eos % (Auto) 2.7 (0-4) % Baso % (Auto) 0.8 (0-2) % Lymph # (Auto) 2.7 (1.2-4.9) X10*3/uL Wirt # (Auto) 0.5 (0.1-1.2) X10*3/uL Eos # (Auto) 0.2 (0.0-0.4) X10*3/uL Baso # (Auto) 0.1 (0.0-0.2) X10*3/uL Abs Immat Gran (auto) 0.01 (0.00-0.03) X10*3/uL Absolute Neuts (auto) 4.9 (2.0-8.3) x10*3/uL Absolute Nucleated RBC 0.000 (0.0-0.012) X10*3/uL Nucleated RBC % (auto) 0.0 (0.0-0.2) /100WBC Sodium 143 (135-145) mmol/L Potassium 3.6 (3.3-5.1) mmol/L Chloride 108 (96-108) mmol/L Carbon Dioxide 24 (22-29) mmol/L Anion Gap 15 (12-20) BUN 15 (9-16) mg/dL Creatinine 0.69 (0.5-1.4) mg/dL Estim Creat Clear Calc 72.6 Estimated GFR > 60 Random Glucose 114 (60-115) mg/dL Calcium 9.6 (8.4-10.2) mg/dL Independent Interpretation I performed an independent interpretation of an: Ultrasound Radiology Impression Discussion of test interpretation with radiology: I have reviewed the radiologist's reading. Independent Historian Clinical information obtained from an independent historian. History obtained from or confirmed by: Other (Daughter) External Record Review External record reviewed: Inpatient record, Office record, Outpatient record, Prior outpatient labs, Prior outpatient radiology, Primary care record and Outside ED record Tests considered The following testing was considered but not selected: As above Prescription Management I considered prescription management with: Pain Medication and Antibiotic Chronic Conditions Patient?s care impacted by: Other Social Determinants Patient?s care significantly limited by Social Determinants of Health including: Other Social Determinant of Health Discharge Plan Discharge Clinical Impression: Superficial thrombophlebitis Patient Disposition: Home, Self-Care Instructions: Superficial Thrombophlebitis (ED) Additional Instructions: Your ultrasound was negative for a blood clot. Your blood work is reassuring Keflex as an antibiotic please take as prescribed for possible early cellulitis Naproxen as an anti-inflammatory/pain medication, please take with food If area becomes increasingly swollen, red, you have fever, shortness of breath, chest pain return to the emergency department Please have close follow up with your PCP Prescriptions: New cephalexin 500 mg capsule 500 mg PO QID 7 Days Qty: 28 0RF naproxen 500 mg tablet 500 mg PO BID PRN (Reason: pain) 10 Days Qty: 20 0RF No Action allopurinol 100 mg tablet 100 mg PO DAILY Qty: 90 1RF propranolol 20 mg tablet 20 mg PO DAILY Qty: 90 0RF atorvastatin 10 mg tablet 10 mg PO DAILY estradiol 0.01 % (0.1 mg/gram) cream vaginal Adult 50 Plus Probiotic 4 billion cell capsule 4,000 mmu cells PO DAILY Rx Instructions: administer with a meal krill oil 500 mg capsule PO multivit with min-folic acid 0.4 mg tablet PO albuterol 90 mcg/actuation aerosol inhalation ciprofloxacin HCl 500 mg tablet 500 mg PO BID 3 Days Qty: 6 0RF Referrals: Daniele Robles MD [Primary Care Provider, Internal Medicine] - 1 week Print Language: Spanish
[2025-04-02 18:30] LABS: MANUAL DIFF FLAG NO
[2025-04-02 18:51] LABS: Anion Gap 15 (12-20); Blood Urea Nitrogen 15 mg/dL (9-16); Calcium 9.6 mg/dL (8.4-10.2); Carbon Dioxide 24 mmol/L (22-29); Chloride 108 mmol/L (96-108); Creatinine Clr Calc Pharmacy 72.6; Estimated Glomerular Filt Rate > 60; Hematocrit 42.4 % (37.0-47.0); Hemoglobin 13.9 g/dl (12.0-16.0); Imm Gran Abs Auto 0.01 X10*3/uL (0.00-0.03); Imm Gran Pct Auto 0.1 % (0.0-0.4); Lymphocytes Absolute Auto 2.7 X10*3/uL (1.2-4.9); Mean Corpuscular HGB Conc 32.8 g/dl (31.0-35.0); Mean Corpuscular Hemoglobin 29.6 pg (27.0-33.0); Mean Corpuscular Volume 90.2 fL (80.0-98.0); NRBC Abs Auto 0.000 X10*3/uL (0.0-0.012); NRBC Pct Auto 0.0 /100WBC (0.0-0.2); Platelet Count 359 X10*3/uL (160-400); Potassium 3.6 mmol/L (3.3-5.1); Red Blood Count 4.70 X10*6/uL (4.20-5.50); Sodium 143 mmol/L (135-145); White Blood Count 8.4 X10*3/uL (4.8-10.8)
--- OUTSIDE RECORDS SUMMARY | 2025-04-02 19:42 | XMS_ITS | Patient Health Record ---
Author Organization [facility] Address [address] [place] [phone] Care Team Providers Care .Net Architect Name Role Phone Demarcus Stokes Unavailable [phone] Reason For Referral No Information Plan Of Treatment No Information
--- OUTSIDE RECORDS SUMMARY | 2025-04-02 19:42 | XMS_ITS | Clinical Summary ---
Author Organization [address] Address [address] [place] [address] Phone Care Team Providers Care Director Of Securities And Real Estate Name Role Phone Louie Miller MD Primary Care Provider [phone] Social History Tobacco Use Types Packs/Day Years [...] age to complete this topic Insurance MEDICARE [facility] Care Teams Director Of Securities And Real Estate Relationship Specialty Start Date End Date Louie Miller MD [address] [place] [address] Dr Yaw [place] PCP - General Internal Medicine 05/27/24
--- OUTSIDE RECORDS SUMMARY | 2025-04-02 19:42 | XMS_ITS | Encounter Summary ---
[facility] Organization [facility] Address [address] [place] [address] Care Team Providers Care Shipping Receiving Clerk Name Role Phone Louie Miller MD Primary Care Provider [phone] Encounter Details Date Type Department Care Team (Late st Contact Info) Description 05/27/2024 Lab Requisition [facility] - Main Lab [address] [place] [phone] Deandra Marroquin PA [address] [place] [address] Calculus of kidney; Hypercalcemia Social History Tobacco [...] LAB CHEMISTRY METHOD 05/27/2024 8:01 PM EST [facility]) [facility] Blood Venous blood specimen / Unknown 05/27/2024 05/27/2024 6:16 PM EST Deandra KESSLER LAB BLOOD ORDERABLES Final Re sult Performing Organization Address City/[facility]/ZIP Co de Phone Number [facility] [address] [place] [address], [place] [phone] * (ABNORMAL) Vitamin D 25 hydroxy (05/27/2024 12:00 AM EST) Vit D, 25-Hydroxy 9.9(L) 30.0 - 80.0 ng/mL LAB CHEMISTRY METHOD 05/27/2024 8:17 PM EST [facility] Blood Venous blood specimen / Unknown 05/27/2024 05/27/2024 6:16 PM EST Deandra KESSLER LAB BLOOD ORDERABLES Final Re sult Performing Organization Address [facility] Co de Phone Number [facility] [address] [place] [address], [place] [phone] documented in this encounter Visit Diagnoses Diagnosis Calculus of kidney Hypercalcemia documented in this encounter Care Teams Shipping Receiving Clerk Relationship Specialty Start Date End Date Louie Miller MD [address] [place] [address] Dr Tidwell [place] PCP - General Internal Medicine 05/27/24 documented as of this encounter
== END 2025-04-02 20:23 | disposition home or self-care (01) ==
PROVIDERS: Physician Assistant; Emergency Provider Student in an Organized Health Care Education/Training Program; PCP Student in an Organized Health Care Education/Training Program
DX: I80.8 Phlebitis and thrombophlebitis of other sites (principal); Z98.890 Other specified postprocedural states; Z79.899 Other long term (current) drug therapy
CPT/HCPCS: 36415; 80048; 85025; 93971; 99281; 99284